=== PATIENT | female | born 1970 | race Caucasian/White ===

== ENCOUNTER → 2019-05-26 | Outpatient (CLI) | payer OTHER, SELFPAY ==
--- OUTSIDE RECORDS SUMMARY | 2019-05-26 16:14 | XMS RPT_ITS | CCD ---
:1970 External Reference #:[id number] Author Organization [facility] Care Team Providers Name Role Phone Romeo JACKSON, P Unavailable WEEMAN, M Unavailable Unavailable WEEMAN, M Unavailable Unavailable WEEMAN, M Unavailable Unavailable BROWN Unavailable Unavailable PROVIDER Unavailable Unavailable PROVIDER Unavailable Unavailable PROVIDER Unavailable Unavailable WEEMAN, M Unavailable Unavailable WEEMAN, M Unavailable Unavailable WEEMAN, M Unavailable Unavailable BROWN Unavailable Unavailable PROVIDER Unavailable Unavailable PROVIDER Unavailable Unavailable PROVIDER Unavailable Unavailable WEEMAN, M Unavailable Unavailable WEEMAN, M Unavailable Unavailable WEEMAN, M Unavailable Unavailable BROWN Unavailable Unavailable PROVIDER Unavailable Unavailable PROVIDER Unavailable Unavailable PROVIDER Unavailable Unavailable PHYSICIAN Primary Care Unavailable SERRI Attending Unavailable [facility] Referring Unavailable FANNING, A Attending Unavailable CHRISTEN QUINONES Referring Unavailable FANNING, A Admitting Unavailable FANNING, A Attending Unavailable FANNING, A Referring Unavailable FANNING, A Admitting Unavailable FANNING, A Attending Unavailable FANNING, A Referring Unavailable FANNING, A Referring Unavailable FANNING, A Referring Unavailable Artie DEJESUS (VAULT MAKER) Attending Unavailable HEMA, A Referring Unavailable HEMA, A Attending Unavailable HEMA, A Referring Unavailable HEMA, A Referring Unavailable HEMA, A Attending Unavailable HEMA, A Referring Unavailable Romeo JACKSON, P Unavailable Allergies Reported Allergen Reaction(s) Severity Date of Onset Location penicillin v Critical, Critical 07-03-2017 - [facility] ([phone]) Penicillins Unknown 10-11-2006 - [facility] Translations: [ [facility] [place] PENICILLINS] Repository Problems Active Problems Category Problem Name Status Date Location Abdominal pain Epigastric pain Active 01-17-2019 - [facility] (0000 0) Other screening for Mammography abnormal Active 07-03-2017 - [facility] Surgical suspected conditions [facility] ([id number]) (not mental disorders or infectious disease) Past or Other Problems Category Problem Name Status Date Location Other screening for Encounter for Completed 03-11-2018 - [facility] suspected conditions screening for lipoid [place] ([id number]) (not mental disorders disorders or infectious disease) Results Result Name Value Range Unit Interpretation Flag Date Location cnpn on 2019-05-13 CNPN Telephone (AGGENS7) Normal 05-13-2019 [facility] BOZENA QUEVEDO ([id number]) 1970 F Medical Date Time Provider Department Center 05/13/19 ROMIE GRUBER AGGENS7 ([id number]) During your visit today, we recorded the following informati on about you: Becca Zaragoza MA 05/13/2019 10:41 AM Signed Bozena called today for pathology results from her EGD. I did not give them to her, I wasn't sure if I'm allowed. She has a follow up appointment scheduled with you on May 28 does she need to keep this appointment? Romie Gruber MD 05/13/2019 10:45 AM Signed Her pathology showed no abnormalities. I would like to have the follow up unless her symptoms are resolved. Allergies As of Date: 05/13/2019 Noted Allergy Reaction PENICILLINS 10/11/2006 16 - Unknown Comments: Patient told she was allergic from childhood Date Reviewed: 05/06/2019 Reviewed by: Seda Piedra) REJI Minor - Fully Assessed Reason for Visit: Results [95] Prescriptions as of 05/13/2019 Sig: MOTRIN ORAL Take 400 mg by mouth as neede* RANITIDINE 150 MG TABLET Take 1 tablet by mouth twice * ASCORBIC ACID (VITAMIN C) 500* Take 500 mg by mouth once ezra * Problem List As Of Date 05/13/2019 Noted Resolved Rosacea [L71.9] INVALID FOR* Sebaceous cyst [L72.3] INVALID FOR* Scar condition and fibrosis of skin [L90.5] INVALID FOR* Other chronic dermatitis due to solar radiation*INVALID FOR* Fibrocystic change of breast [N60.19] INVALID FOR* More... More... Vertigo [R42] INVALID FOR* More... Ex-smoker [Z87.891] INVALID FOR* More... Sliding hiatal hernia [K44.9] INVALID FOR* GERD without esophagitis [K21.9] INVALID FOR* Schatzki's ring [K22.2] INVALID FOR* Encounter for gynecological examination [Z01.41*INVALID FOR* More... Encounter Status:Closed by ROMIE GRUBER MD on 05/13/19 surgical tissue exam on 2019-05-06 Surgical Tissue Test performed at [facility] Normal 05-06-2019 [facility] [address] [place] [id number] ([id number]) NAME: BOZENA QUEVEDO REQUESTING: ROMIE GRUBER M.D. COPY TO: LOKI GARRIDO FINAL DIAGNOSIS: A) STOMACH, ANTRUM, BIOPSY - NO PATHOLOGIC ABNORMALITIES. SE E COMMENT. B) GASTROESOPHAGEAL JUNCTION, BIOPSY - NO PATHOLOGIC ABNORMA LITIES. SEE COMMENT. COMMENT: There are no histologic features in the gastric bio psy to suggest Helicobacter pylori infection. There is no evidence of intestinal metaplasia identified in the gastroesophageal spencer ction biopsy. OPERATIVE PROCEDURE: EGD CLINICAL INFORMATION: Gastroesophageal reflex disease, esophagitis presence not sp ecified [K21.9] GROSS DESCRIPTION: A) Antrum biopsies Received in formalin labeled antrum biopsies are two segment s of noriega soft tissue aggregating to 0.6 x 0.1 x 0.1 cm. The specimen is totally submitted in formalin in one cassette. Levels x 2. B) GE junction biopsies Received in formalin labeled gastroesophageal junction biops ies are multiple segments of noriega-white soft tissue aggregating to 0. 4 x 0.1 x 0.1 cm. The specimen is totally submitted in formalin in one cassette. Levels x 2. ARH:arnie PENA M.D., PATHOLOGIST (Electronic signature on file) Signed out: 05/08/2019 15:17 PRINTED: 05/08/2019 Page 1 of 1 Comment: Performed By: #### SURG #### [place] [id number] pt ed on 2019-05-06 PT ED HNO ID: [id number] Normal 05-06-2019 [facility] Author: Tanesha (Rn) REJI Gilman [place] ([id number]) Service: ? Author Type: Registered Nurse Type: Patient Education Filed: 05/06/2019 9:26 AM Note Text: ONGOING PATIENT EDUCATION TOPIC Reinforced: pain scale Patient Name: Bozena Quevedo Patient [facility]: [facility] Readiness To Learn Motivation To Learn: Interested Instruction Provided To: Patient Learning Response Patient/Family Response: Verbalizes understanding of: PAIN MANAGEMENT-Effective strategies to manage pain in addition t o pain medication Method of Instruction: Individual instruction Follow-Up Plan: Complete - No need for follow-up Electronically signed by: Tanesha Gilman RN operative no on 201 08-01-11 OPERATIVE NO HNO ID: [id number] Normal 05-06-20 [facility] Author: Romie Treadwell [facility] Service: General Surgery ([id number]) Author Type: Physician Type: Operative Report Filed: 05/07/2019 4:38 PM Note Text: [facility] - Operative Report - [facility] BOZENA QUEVEDO : 1970 AGE: 48. SEX: F PATIENT TYPE: A HOSP SVC: [facility] LOCATION: [facility] ATTENDING PHYSICIAN: ROMIE GRUBER CSN NUMBER: [id number] DATE OF SURGERY/PROCEDURE: 05/06/2019 INCISION/PROCEDURE START TIME: 10:40 AM INCISION CLOSE/PROCEDURE END TIME: 10:44 AM PREOPERATIVE DIAGNOSIS: Gastroesophageal reflux disease and dysphagia. POSTOPERATIVE DIAGNOSIS: Gastroesophageal reflux disease and dysphagia. SURGEON: Romie Gruber MD REGIONAL CONSTRUCTION MANAGER: No Additional Staff SURGERY/PROCEDURE: EGD with biopsy. ANESTHESIA: MAC. HISTORY: The patient is a 48-year-old female, who has reflux disease and dysphagia, and presents today for an EGD. Procedure was revi ewed with her in detail including all the risks, benefits, and complic ations inherent to the procedure, which include but are not limited to, bleeding, infection, missing a lesion, and perforation requi ring surgery. She understood and was agreeable to proceed. DESCRIPTION OF PROCEDURE: The patient was brought to the end oscopy suite. Routine monitoring was performed. She was placed in the left lateral decubitus position after adequate MAC anesthesia was obtaine d. The scope was inserted and passed down the esophagus. Z-line was noted to be at approximately 33 centimeters. There was no esophagitis. Scop e was inserted. Retroflex view showed a Hill grade 2. There were n o abnormalities in remainder in the stomach or the second port ion of the duodenum. Scope was withdrawn. Biopsies were obtained of the antrum and of the GE junction. Air was then aspirated from the stomach. Scope was withdrawn. The patient tolerated the procedure well and was transferred to the recovery room in stable condition. Romie Gruber MD P:[id number] /[id number] nursing prog on 201 08-01-11 Protein mass conc HNO ID: [id number] Normal [facility] Author: Seda Piedra) REJI [facility] ([id number]) Service: ? Author Type: Registered Nurse Type: Nursing Progress Note Filed: 05/06/2019 11:46 AM Note Text: Patient nausea subsided and she was able to go home. Protein mass conc HNO ID: [id number] Normal [facility] Author: Seda Piedra) REJI Minor [place] ([id number]) Service: ? Author Type: Registered Nurse Type: Nursing Progress Note Filed: 05/06/2019 11:20 AM Note Text: Bozena Quevedo [id number] Patient awoke gagging and vomiting profusely. Her stomach wa s empty but the urge to vomit was intense. zofran was given IVP. This mercado s appeared to lesson the urge to vomit but it is still there. Will continu e to monitor. history physical on 2019-05-06 HISTORY PHYSICAL HNO ID: [id number] Normal 04-26 [facility] Author: Susan Coleman ([facility] Service: ? ([id number]) Author Type: Nurse Practitioner Type: HANDP Filed: 05/06/2019 10:17 AM Note Text: HISTORY AND PHYSICAL EXAMINATION Bozena Quevedo 1970 SERVICE DATE: 05/06/2019 SERVICE TIME: 9:55 AM PRIMARY CARE PHYSICIAN: Loki Garrido MD SURGEON: Surgeon(s) and Role: * Romie Gruber - Primary ANESTHESIA: Monitored Anesthesia Care DIAGNOSIS: Gastroesophageal reflux disease, esophagitis pres ence not specified [K21.9] GERD (gastroesophageal reflux disease) [K21.9] PROCEDURE: Procedure(s): EGD (N/A) Subjective CHIEF COMPLAINT: GERD HPI: This is a 48 year old female with a past medical histor y significant for GERD and vertigo who presents to the surgery center for the above procedure. She states that she had an upper GI scope done se veral weeks ago. She was told she had a ring at the bottom of the esop hagus and today they will be taking another look at it. Patient denies any abdominal pain, constipation, diarrhea, nausea, vomiting, black/bloody/tarry stools. She has no questions or concerns at this time and family is at the bedside. PROBLEMS WITH ANESTHESIA: no history of adverse anesthetic event FAMILY PROBLEMS WITH ANESTHESIA: no history of adverse anesthetic event METS: Climb a flight of stairs or walk up a hill (5.50 METs) FUNCTIONAL STATUS: Independent PAST MEDICAL HISTORY Diagnosis Date - Fibrocystic change of breast 04/10/2013 - GERD without esophagitis 01/17/2019 - Sliding hiatal hernia 01/17/2019 - SOLAR LENGINES//////SEBACEOUS GLAND DIS NEC 10/12/2006 - TELANGIECTOSIS///CAPILLARY DIS NEC/NOS 10/12/2006 - Vertigo PAST SURGICAL HISTORY Procedure Laterality Date - ESOPH W/O [facility] SPEC BALLOON DIL - LIGATE FALLOPIAN TUBE 1994 - PAST SURGICAL HISTORY OF 02/2012 Sebaceous cyst removed - PAST SURGICAL HISTORY OF 2004 uterine ablation - FELICIANO CUT BX BREAST MASS Left 03/11/2018 FAMILY HISTORY Problem Relation Age of Onset - Diabetes Maternal Grandmother - Heart Maternal Grandmother - Hypertension Maternal Grandmother - Diabetes Maternal Grandfather Social History Tobacco Use - Smoking status: Former Smoker Types: Cigarettes Last attempt to quit: 04/10/2001 Years since quittin.0 - Smokeless tobacco: Never Used Substance Use Topics - Alcohol use: No - Drug use: No Prior to Admission medications as of 05/06/19 0936 Medication Sig Last Dose Taking ibuprofen (MOTRIN ORAL) Take 400 mg by mouth as needed. 2018 Yes ranitidine (ZANTAC) 150 mg tablet Take 1 tablet by mouth twi ce daily. Yes ascorbic acid (VITAMIN C) 500 mg tablet Take 500 mg by mouth once daily. Yes ALLERGIES Allergen Reactions - Penicillins Rash GI upset COMPLETE REVIEW OF SYSTEMS: GENERAL: No weight loss, malaise or fevers RESPIRATORY: Negative for cough, hemoptysis, wheezing, COPD, dyspnea or shortness of breath CARDIOVASCULAR: Negative for chest pain, leg swelling, hyper tension, CHF or palpitations GI: See HPI : No history of dysuria, frequency or incontinence MUSCULOSKELETAL: Negative for joint pain or swelling, back p ain or muscle pain PSYCH: Negative for sleep disturbance, mood disorder and rec ent psychosocial stressors ENDOCRINE: Negative for cold or heat intolerance, polyuria, polydipsia and goiter NEURO: +hx of vertigo HEM/ONC: no history of hematologic or oncologic problems Objective PHYSICAL EXAM: MENTAL STATUS: alert, oriented to person, place and time HEENT: Normocephalic/atraumatic, no lymphadenopathy, thyroid non-tender, without palpable masses/nodules or enlargement LUNGS: Lungs clear to auscultation, Good diaphragmatic excur kvng CARDIAC: Normal S1 and S2; no rubs, murmurs, or gallops ABDOMEN: Abdomen soft, non-tender, BS normal, No masses or o rganomegaly EXTREMITIES: Extremities normal, no deformities, edema, club susy or skin discoloration. Good capillary refill., No ulcers 05/06/19 0940 BP: 104/68 Pulse: 62 Resp: 16 Temp: 36.7 ?C (98.1 ?F) SpO2: 100% Weight: 57.6 kg (127 lb) Height: 149.9 cm (4' 11) Body mass index is 25.65 kg/m?. SIGNATURE: Susan Garcia APRN.WEAVE ROOM SUPERVISOR PATIENT NAME: Bozena Quevedo DATE: May 06, 2019 TIME: 9:55 AM PAGER/CONTACT #: fermin preop on 05-06 FERMIN PREOP HNO ID: [id number] Normal 05-06-2019 [facility]y Author: Jatinder [facility] Service: Anesthesiology ([id number]) Author Type: Physician Type: Anesthesia PreOp Filed: 05/06/2019 9:33 AM Note Text: ANESTHESIOLOGY DAY OF SURGERY NOTE SERVICE DATE: 05/06/2019 SERVICE TIME: 9:32 AM : 1970 Procedure(s) (LRB): EGD (N/A) Surgeon(s): Romie Gruber Estimated body mass index is 24.56 kg/m? as calculated from the following: Height as of 01/29/19: 154.9 cm (5' 1). Weight as of 01/29/19: 59 kg (130 lb). Most recent hematocrit and potassium results: No results found for this basename: HCT,HEMATOCRIT,K,POTASSI UM ANES DOS/PREOP NOTE: Vitals: There were no vitals filed for this visit. ACTIVE PROBLEM LIST Rosacea Sebaceous Cyst Scar condition and fibrosis of skin Other chronic dermatitis due to solar radiation Fibrocystic Change of Breast Vertigo Ex-Smoker Sliding Hiatal Hernia Gerd Without Esophagitis Schatzki's Ring Encounter for Gynecological Examination PAST MEDICAL HISTORY Diagnosis Date - Contact dermatitis and other eczema, due to unspecified ca use 10/12/2006 - Ex-smoker 12/11/2018 Started at age 19, up to 5-6 cigs a day and quit at age 39 - Fibrocystic change of breast 04/10/2013 - GERD without esophagitis 01/17/2019 - NEGATIVE MEDICAL HISTORY - Other acne 10/12/2006 - Other chronic dermatitis due to solar radiation 10/12/2006 - Rosacea 10/12/2006 - Scar condition and fibrosis of skin 10/12/2006 - Sebaceous cyst 10/12/2006 - Sliding hiatal hernia 01/17/2019 - SOLAR LENGINES//////SEBACEOUS GLAND DIS NEC 10/12/2006 - TELANGIECTOSIS///CAPILLARY DIS NEC/NOS 10/12/2006 - Vertigo PAST SURGICAL HISTORY Procedure Laterality Date - [facility] BALLOON DIL - LIGATE FALLOPIAN TUBE 1994 - PAST SURGICAL HISTORY OF 02/2012 Sebaceous cyst removed - PAST SURGICAL HISTORY OF 2004 uterine ablation - FELICIANO CUT BX BREAST MASS Left 03/11/2018 FAMILY HISTORY Problem Relation Age of Onset - Diabetes Maternal Grandmother - Heart Maternal Grandmother - Hypertension Maternal Grandmother - Diabetes Maternal Grandfather Social History: Social History Tobacco Use - Smoking status: Former Smoker Types: Cigarettes Last attempt to quit: 04/10/2001 Years since quittin.0 - Smokeless tobacco: Never Used Substance Use Topics - Alcohol use: No - Drug use: No No current facility-administered medications on file prior t o encounter. Current Outpatient Medications on File Prior to Encounter: ranitidine (ZANTAC) 150 mg tablet Take 1 tablet by mouth twi ce daily. ascorbic acid (VITAMIN C) 500 mg tablet Take 500 mg by mouth once daily. Current Facility-Administered Medications Medication Dose Route Frequency Provider Last Rate Last Dose - lidocaine 10 mg/mL (1 %) 1-2 mg injection (XYLOCAINE) 0.1- 0.2 mL INTRADERMAL PRN Susan Coleman (Senior Manager Quality Assurance) Jose - lactated ringers infusion 5-30 mL/hr INTRAVENOUS CONTINUOU S Susan Coleman (Senior Manager Quality Assurance) Jose Allergies: ALLERGIES Allergen Reactions - Penicillins Rash GI upset DOS EXAM: Adequate NPO status: Yes Anesthetic risks, benefits, alternatives, personnel and cons ent discussed: Yes Patient agrees to proceed: Yes Previous Anesthesia: No history of adverse event. Airway Assessment: MP 2; Neck ROM: Full ROM without neurolog ic symptoms; Airway Evaluation: No significant abnormalities Symptoms of Sleep Apnea: None Dentition: Teeth intact Additional Physical Exam: Lungs: Patient health status unchanged since recent history and physical. See history and physical for exam findings. Cardiac: Patient health status unchanged since recent histor y and physical. See history and physical for exam findings. Additional Pertinent Findings: N/A Blood Products: Not anticipated for this procedure. Anesthetic Plan: General, Standard ASA Monitors Pain Management Plan: Parenteral or Oral ASA Class: 2 Other Medical Problems: None Chronic Beta Nazia medication administered within 24 hours : N/A I have interviewed and examined the patient. I have reviewed the medical record and/or the pre-anesthesia evaluation, pertinent labs, and test results. Significant changes in the patient's condition since the His tory and Physical, not otherwise documented in primary service progre notes: No This contains updated information obtained within 48 hours o f Surgery/Procedure. SIGNATURE: Jatinder Holman MD PATIENT NAME: Bozena bustos DATE: May 06, 2019 TIME: 9:32 AM CSN: [id number] anes post on 2019--11 ANES POST HNO ID: [id number] Normal 05-06-2019 [facility] Author: Jatinder Holman [place] ([id number]) Service: Anesthesiology Author Type: Physician Type: Anesthesia PostOp Filed: 05/06/2019 11:56 AM Note Text: POST ANESTHESIA EVALUATION NOTE SERVICE DATE: 05/06/2019 SERVICE TIME: 11:56 AM : 1970 Vitals: 05/06/19939 Temp: 36.7 ?C (98.1 ?F) [birth year]1940 05/06/19 1050 05/06/19 1115 BP: 104/68 106/72 97/83 05/06/19 0940 05/06/19 1050 05/06/19 1115 Pulse: 62 83 64 05/06/19 0940 05/06/19 1050 05/06/19 1115 Resp: 16 14 16 05/[birth year]/1940 05/06/19 1050 05/06/19 1115 SpO2: 100% 96% 100% Validated Vital Signs: Yes POST ANES STATUS: No apparent anesthetic complications. The patient is appropriately hydrated with stable respiratory and cardiovas cular status. Patient has safe and adequate airway control. The patient mercado s appropriate pain relief and no significant post operative nausea or vomi ting. The patient has achieved baseline mental status. Intra-Operative Events: No Significant Anesthesia Events Further assessment by Anesthesia Service: None Other Remarks: SIGNATURE: Jatinder Holman MD PATIENT NAME: Bozena bustos DATE: May 06, 2019 TIME: 11:56 AM PAGER/CONTACT #: hosp on 2019-05-05 HOSP Patient:Bozena Quevedo Normal [facility] MRN: Medical Ce nter Height:4' 11(1.499 m) ([id number]) Weight:127 lb (57.607 kg) Outpatient Medications as of 05/06/19: ibuprofen (MOTRIN ORAL) ranitidine (ZANTAC) 150 mg tablet ascorbic acid (VITAMIN C) 500 mg tablet Admission/Clinic Administered Medications as of 05/06/19: HYDROcodone-acetaminophen oral liquid 7.5 mg-325 mg/15 mL (H YCET) Problem List: Rosacea [L71.9] Sebaceous cyst [L72.3] Scar condition and fibrosis of skin [L90.5] Other chronic dermatitis due to solar radiation [L57.8] Fibrocystic change of breast [N60.19] Vertigo [R42] Ex-smoker [Z87.891] Sliding hiatal hernia [K44.9] GERD without esophagitis [K21.9] Schatzki's ring [K22.2] Encounter for gynecological examination [Z01.419] Allergies: Penicillins Date Verified: 05/06/19 Lab Values No results within the last 30 days for the following basenam es: K,HCT Progress Notes ([facility]): Loki Garrido MD 04/08/2019 5:10 PM Signed New order for bilat diagnostic mammo placed. Please help set up. Trish Iqbal LPN 04/09/2019 9:05 AM Signed Patient aware orders are updated. Trish Iqbal LPN progress on 2019-01 Protein mass HNO ID: [id number] Normal 01-30-20 19 [facility] Author: Romie [facility] Service: ? ([id number]) Author Type: Physician Type: Progress Notes Filed: 01/29/2019 4:53 PM Note Text: Bozena Quevedo is a 48 year old White female who presen with complaints of chest discomfort. This happened in November she is having discomfort in the lower chest upper abdomen. She did go to [facility] emergency department. EKG and troponins were normal. She was diagnosed with reflux and paced on a PPI. She take it for 2 weeks and saw her [facility] doctor ordered an upper GI. This showed a small sliding karma ia and mild reflux. There is also a Schatzki's ring but there is no obst ruction of flow into the stomach. She is currently taking ranitidine. S he denies any significant relief of symptoms. PAST MEDICAL HISTORY Diagnosis Date - Contact dermatitis and other eczema, due to unspecified ca use 10/12/2006 - Ex-smoker 12/11/2018 Started at age 19, up to 5-6 cigs a day and quit at age 39 - Fibrocystic change of breast 04/10/2013 - GERD without esophagitis 01/17/2019 - NEGATIVE MEDICAL HISTORY - Other acne 10/12/2006 - Other chronic dermatitis due to solar radiation 10/12/2006 - Rosacea 10/12/2006 - Scar condition and fibrosis of skin 10/12/2006 - Sebaceous cyst 10/12/2006 - Sliding hiatal hernia 01/17/2019 - SOLAR LENGINES//////SEBACEOUS GLAND DIS NEC 10/12/2006 - TELANGIECTOSIS///CAPILLARY DIS NEC/NOS 10/12/2006 - Vertigo PAST SURGICAL HISTORY Procedure Laterality Date - ESOPH W/O [facility] SPEC BALLOON DIL - LIGATE FALLOPIAN TUBE 1994 - PAST SURGICAL HISTORY OF 02/2012 Sebaceous cyst removed - PAST SURGICAL HISTORY OF 2004 uterine ablation - FELICIANO CUT BX BREAST MASS Left 03/11/2018 Social History Tobacco Use - Smoking status: Former Smoker Types: Cigarettes Last attempt to quit: 04/10/2001 Years since quittin.8 - Smokeless tobacco: Never Used Substance Use Topics - Alcohol use: No - Drug use: No FAMILY HISTORY Problem Relation Age of Onset - Diabetes Maternal Grandmother - Heart Maternal Grandmother - Hypertension Maternal Grandmother - Diabetes Maternal Grandfather ALLERGIES Allergen Reactions - Penicillins Rash GI upset Current Outpatient Medications: ranitidine (ZANTAC) 150 mg tablet Take 1 tablet by mouth twi ce daily. ascorbic acid (VITAMIN C) 500 mg tablet Take 500 mg by mouth once daily. No current facility-administered medications for this visit. REVIEW OF SYSTEMS PAIN ASSESSMENT: Negative for pain, history of chronic pain, or current treatment for a chronic pain condition. GENERAL: No weight loss, malaise or fevers NECK: Negative for lumps, goiter, pain and significant neck swelling RESPIRATORY: Negative for cough, hemoptysis, wheezing, COPD, dyspnea or shortness of breath CARDIOVASCULAR: Negative for chest pain, leg swelling, hyper tension, CHF or palpitations GI: See HPI : No history of dysuria, frequency or incontinence MUSCULOSKELETAL: Negative for joint pain or swelling, back p ain or muscle pain HEMATOLOGY/LYMPHOLOGY: Negative for prolonged bleeding, brui sing easily or swollen nodes ENDOCRINE: Negative for cold or heat intolerance, polyuria, polydipsia and goiter PHYSICAL EXAM: BP 112/68 Pulse 62 Resp 20 Ht 5' 1 (1.55m) Wt 130 l b (59.0kg) SpO2 99% BMI 24.58 kg/(m2). General Appearance: Well appearing, alert, in no acute distr ess, well-hydrated, well nourished.. Eyes: Normal sclera Skin: Skin texture and turgor normal, no suspicious rashes o r lesions, Negative for jaundice or pallor. Neck: Supple, trachea midline Lungs: lungs clear to auscultation. No wheezing, rhonchi, ra les. Heart: RRR without murmur, gallop, or rubs. No ectopy. Abdomen: Normal abdominal exam, Abdomen soft, non-tender. Jacob wel sounds normal. No masses, organomegaly, Negative CVA tenderness. Musculoskeletal: Negative. Lymph Nodes: No cervical lymphadenopathy and No supraclavicu lar lymphadenopathy. Assessment: Gastroesophageal reflux disease, esophagitis presence not sp ecified (primary encounter diagnosis) Plan: Given her symptoms especially the chest pressure I recommend ed proceeding with a EGD and placement of cárdenas pH probe and manometry. Th e risks, benefits and complications were reviewed including but not l imited to bleeding, infection, missing a lesion, effects of anesthesia and perforation possibly requiring an emergency surgery. She und erstood and was agreeable to proceed.Greater than 50% of the direct jose ent contact time was spent in counseling or coordination of care. Romie Gruber M.D., F.A.C.S. cnov on 2019-01-29 CNOV Office Visit ([facility]) Normal 01-30-20 19 [facility] BOZENA QUEVEDO ([id number]) 1970 F Medical Date Time Provider Department Center 01/29/19 2:45 PM [id number] During your visit today, we recorded the following informati on about you: Pulse Respiration Blood pressure Weight 62/minute 20/minute 112/68 59 kg Height 1.549 m Romie Gruber MD 01/29/2019 4:53 PM Signed Bozena Quevedo is a 48 year old Whi te female who presents with complaints of chest discomfort. This happened in November sh e is having discomfort in the lower chest upper abdomen. She did go to the emergency depar tment. EKG and troponins were normal. She was diagnosed with reflux a nd paced on a PPI. She take it for 2 weeks and saw her primary care doc tor ordered an upper GI. This showed a small sliding hernia and mild r eflux. There is also a Schatzki's ring but there is no obstruction of flow into the sto mach. She is currently taking ranitidine. She denies any significant relief of symptoms. PAST MEDICAL HISTORY Diagnosis Date - Contact dermatitis and other eczema, due to unspecified ca use 10/12/2006 - Ex-smoker 12/11/2018 Started at age 19, up to 5-6 cigs a day and quit at age 39 - Fibrocystic change of breast 04/10/2013 - GERD without esophagitis 01/17/2019 - NEGATIVE MEDICAL HISTORY - Other acne 10/12/2006 - Other chronic dermatitis due to solar radiation 10/12/2006 - Rosacea 10/12/2006 - Scar condition and fibrosis of skin 10/12/2006 - Sebaceous cyst 10/12/2006 - Sliding hiatal hernia 01/17/2019 - SOLAR LENGINES//////SEBACEOUS GLAND DIS NEC 10/12/2006 - TELANGIECTOSIS///CAPILLARY DIS NEC/NOS 10/12/2006 - Vertigo PAST SURGICAL HISTORY Procedure Laterality Date - [facility] - LIGATE FALLOPIAN TUBE 1994 - PAST SURGICAL HISTORY OF 02/2012 Sebaceous cyst removed - PAST SURGICAL HISTORY OF 2004 uterine ablation - FELICIANO CUT BX BREAST MASS Left 03/11/2018 Social History Tobacco Use - Smoking status: Former Smoker Types: Cigarettes Last attempt to quit: 04/10/2001 Years since quittin.8 - Smokeless tobacco: Never Used Substance Use Topics - Alcohol use: No - Drug use: No FAMILY HISTORY Problem Relation Age of Onset - Diabetes Maternal Grandmother - Heart Maternal Grandmother - Hypertension Maternal Grandmother - Diabetes Maternal Grandfather ALLERGIES Allergen Reactions - Penicillins Rash GI upset Current Outpatient Medications: ranitidine (ZANTAC) 150 mg tablet Take 1 tablet by mouth twi ce daily. ascorbic acid (VITAMIN C) 500 mg tablet Take 500 mg by mouth once daily. No current facility-administered medications for this visit. REVIEW OF SYSTEMS PAIN ASSESSMENT: Negative for pain, history of chronic pain, or current treatment for a chronic pain condition. GENERAL: No weight loss, malaise or fevers NECK: Negative for lumps, goiter, pain and significant neck swelling RESPIRATORY: Negative for cough, hemoptysis, wheezing, COPD, dyspnea or shortness of breath CARDIOVASCULAR: Negative for chest pain, leg swelling, hyp ertension, CHF or palpitations GI: See HPI : No history of dysuria, frequency or incontinence MUSCULOSKELETAL: Negative for joint pain or swelling, back pain or muscle pain HEMATOLOGY/LYMPHOLOGY: Negative for prolonged bleeding, brui sing easily or swollen nodes ENDOCRINE: Negative for cold or heat intolerance, polyuria, polydipsia and goiter PHYSICAL EXAM: BP 112/68 Pulse 62 Resp 20 Ht 5' 1 (1.55m ) Wt 130 lb (59.0kg) SpO2 99% BMI 24.58 kg/(m2). General Appearance: Well tad earing, alert, in no acute distress, well-hydrated, well nourished.. Eyes: Normal sclera Skin: Skin texture and turgo r normal, no suspicious rashes or lesions, Negative for jaundice or pallor. Neck: Supple, trachea midline Lungs: lungs clear to auscultation. No wheezing, rhonchi, ra les. Heart: RRR without murmur, gallop, or rubs. No ectopy. Abdomen: Normal abdominal exam, Abdomen soft, non-tender. Bowel sounds normal. No masses, organomegaly, Negative CVA tenderness. Musculoskeletal: Negative. Lymph Nodes: No cervical lym phadenopathy and No supraclavicular lymphadenopathy. Assessment: Gastroesophageal reflux disease, esophagitis presence not specified (primary encounter diagnosis) Plan: Given her symptoms especially the chest pressure I recommended proceeding with a EGD and placement of cárdenas pH probe and manometry. T he risks, benefits and complications were reviewed including but not li mited to bleeding, infection, missing a lesion, effects of anesthesia and perf oration possibly requiring an emergency surgery. She under stood and was agreeable to proceed.Greater than 50% of the direct patient contact time was spent in counseling or coordination of care. Romie Gruber M.D., F.A.C.S. Adelina Espinoza RN 01/29/2019 3:10 PM Signed Discussed and reviewed manometry with pt; all questions answ ered. Discussed and reviewed EGD with biopsy with pt; all question s answered. Discussed and reviewed Cárdenas with pt; all questions answered . Adelina Espinoza RN Referring Provider: LOKI GARRIDO [[id number]] Allergies As of Date: 01/29/2019 Noted Allergy Reaction PENICILLINS 10/11/2006 2 - Rash Comments: GI upset Date Reviewed: 01/29/2019 Reviewed by: Romie Gruber - Fully Assessed Reason for Visit: New Patient [172] Cmt: Hiatal Hernia Primary Visit Diagnosis:Gastroesophageal reflux disease, esophagitis presence not specified [K21.9] Order(s):MANOMETRY ESOPHAGEAL FUNCTION W/IMPEDANCE [[id number] ] Order #: [id number] Prescriptions as of 01/29/2019 Sig: RANITIDINE 150 MG TABLET Take 1 tablet by mouth twice * ASCORBIC ACID (VITAMIN C) 500* Take 500 mg by mouth once ezra * Problem List As Of Date 01/29/2019 Noted Resolved Rosacea [L71.9] INVALID FOR* Sebaceous cyst [L72.3] INVALID FOR* Scar condition and fibrosis of skin [L90.5] INVALID FOR* Other chronic dermatitis due to solar radiation*INVALID FOR* Fibrocystic change of breast [N60.19] INVALID FOR* More... More... Vertigo [R42] INVALID FOR* More... Ex-smoker [Z87.891] INVALID FOR* More... Sliding hiatal hernia [K44.9] INVALID FOR* GERD without esophagitis [K21.9] INVALID FOR* Schatzki's ring [K22.2] INVALID FOR* Encounter for gynecological examination [Z01.41*INVALID FOR* More... Visit Notes: >> Adelina Espinoza RN SunJan 29, 2019 3:07 PM Status: Svetlana leger Discussed and reviewed manometry with pt; all questions answ ered. Discussed and reviewed EGD with biopsy with pt; all question s answered. Discussed and reviewed Cárdenas with pt; all questions answered . Adelina Espinoza RN Disposition: Return for After EGD, After testing. Follow-up and Disposition History Recorded Questionnaire: AG GERD HEALTH RELATED QUALITY OF LIFE Surgery/Baclofen dose -> On PPI'S 1. How bad is the heartburn? -> 0 No Symptoms 2. Heartburn when lying down? -> 0 No Symptoms 3. Heartburn when standing up? -> 0 No Symptoms 4. Heartburn after meals? -> 0 No Symptoms 5. Does heartburn change your diet? -> 0 No Symptoms 6. Does heartburn wake you from sleep? -> 0 No Symptoms 7. Do you have difficulty swallowing -> 0 No Symptoms 8. Do you have pain with swallowing? -> 0 No Symptoms 9. If you take medication, does this affect your daily life? -> 0 No Symptoms 10. How bad is the regurgitation? -> 0 No Symptoms 11. Regurgitation when lying down? -> 0 No Symptoms 12. Regurgitation when standing up? -> 0 No Symptoms 13. Regurgitation after meals? -> 0 No Symptoms 14. Does regurgitation change your diet? -> 0 No Symptoms 15. Does regurgitation wake you from sleep? -> 0 No Symptoms TOTAL - HEARTBURN 1-9 -> 0 TOTAL - REGURG 10-15 -> 0 Total -> 0 16. How satisfied are you with your present condition -> Neena tral Other symptoms - check all that apply -> Belching/burping Tests done: Date/provider/location (in c omments) check all that apply -> Upper GI Cmt: 01/17/19 How long have you had heartburn symptoms -> none What is your most troublesome symptom? -> pressure in my susan rnum What medications have you been treated with for heartburn/ho w long? -> ranitidine 150 mg since Nov 2018 Letter Text Encounter Status:Closed by ROMIE GRUBER MD on 01/29/19 progress on 2018-12 Protein mass HNO ID: [id number] Normal 01-22-20 [facility] Author: Loki Garrido Fluker Service: (none) ([phone]) Author Type: Physician Type: Progress Notes Filed: 01/22/2019 8:30 PM Note Text: Chief Complaint Patient presents with: Recheck: epigastric pain HPI Boznea Quevedo is a 48 year old female who presents her e today for Above Complaints.. Patient still getting the pressure sensation up into the hair st. No burning up into the throat. Has not had any problems with th e Zantac. Her upper GI showed a sliding hiatal hernia with reflux and small Schatzki ring. Past medical history, appointments, medications, allergies r kelsey. Previous Medical History PAST MEDICAL HISTORY Diagnosis Date - Contact dermatitis and other eczema, due to unspecified ca use 10/12/2006 - Ex-smoker 12/11/2018 Started at age 19, up to 5-6 cigs a day and quit at age 39 - Fibrocystic change of breast 04/10/2013 - GERD without esophagitis 01/17/2019 - NEGATIVE MEDICAL HISTORY - Other acne 10/12/2006 - Other chronic dermatitis due to solar radiation 10/12/2006 - Rosacea 10/12/2006 - Scar condition and fibrosis of skin 10/12/2006 - Sebaceous cyst 10/12/2006 - Sliding hiatal hernia 01/17/2019 - SOLAR LENGINES//////SEBACEOUS GLAND DIS NEC 10/12/2006 - TELANGIECTOSIS///CAPILLARY DIS NEC/NOS 10/12/2006 - Vertigo Previous Surgical History PAST SURGICAL HISTORY Procedure Laterality Date - ESOPH W/O [facility] SPEC BALLOON DIL - LIGATE FALLOPIAN TUBE 1994 - PAST SURGICAL HISTORY OF 02/2012 Sebaceous cyst removed - PAST SURGICAL HISTORY OF 2004 uterine ablation - FELICIANO CUT BX BREAST MASS Left 03/11/2018 Family History FAMILY HISTORY Problem Relation Age of Onset - Diabetes Maternal Grandmother - Heart Maternal Grandmother - Hypertension Maternal Grandmother - Diabetes Maternal Grandfather Patient Allergies ALLERGIES Allergen Reactions - Penicillins Rash GI upset Current Medications Current Outpatient Prescriptions on File Prior to Visit: ranitidine (ZANTAC) 150 mg tablet Take 1 tablet by mouth twi ce daily. ascorbic acid (VITAMIN C) 500 mg tablet Take 500 mg by mouth once daily. No current facility-administered medications on file prior t o visit. Social History Social History Marital status: Spouse name: Years of education: Number of children: Social History Main Topics Smoking status: Former Smoker Packs/day: 0.00 Years: 0.00 Types: Cigarettes Quit date: 04/10/2001 Smokeless tobacco: Never Used Alcohol use: No Drug use: No Sexual activity: Yes Partners with: Male Review of Symptoms REVIEW OF SYSTEMS See HPI EXAM: BP 110/62 Pulse 60 Resp 12 Wt 57.6 kg (127 lb) BMI 2 5.95 kg/m? General Appearance: Well appearing, alert, in no acute distr ess, well-hydrated, well nourished.. Abdomen: Normal abdominal exam, Abdomen soft, mild epigastri c tenderness.. Bowel sounds normal. No masses, organomegaly. Health Maintenance List DTAP,TDAP,TD(1 - Tdap) due on 1989 PAP TESTING due on 1991 HPV TESTING due on 1991 MAMMOGRAM due on 03/27/2014 DIABETES SCREEN due on 08/26/2021 LIPID SCREEN due on 08/26/2023 INFLUENZA Completed Data reviewed A/P ASSESSMENT/PLAN: 1. GERD without esophagitis - ICD9: 530.81, ICD10: K21.9 (pr imary diagnosis) - Continue treatment with Zantac 150 mg BID - CONSULT TO GENERAL SURGERY: Dr gruber 2. Sliding hiatal hernia - ICD9: 553.3, ICD10: K44.9 - CONSULT TO GENERAL SURGERY 3. Schatzki's ring - ICD9: 750.3, ICD10: K22.2 - CONSULT TO GENERAL SURGERY Signed Prescriptions Disp Refills ranitidine (ZANTAC) 150 mg tablet 180 tablet 1 Sig: Take 1 tablet by mouth twice daily. WILIAN: No F/u on or after 08/26/2019 for REINALDO Garrido MD cnov on 2019-01-22 CNOV Office Visit ([facility]) Normal 01-22-[address] [facility] DANOKIMBERLYN LANGEELLA ([id number]) 1970 [facility] Date Time Provider Department ([id number]) 01/22/19 4:00 PM LOKI GARRIDOPWS During your visit today, we recorded the following informati on about you: Pulse Respiration Blood pressure Weight 60/minute 12/minute 110/62 57.6 kg Loki Garrido MD 01/22/2019 8:30 PM Signed Chief Complaint Patient presents with: Recheck: epigastric pain HPI Bozena Quevedo is a 48 year old female who presents here today for Above Complaints.. Patient still getting the pressure sensation up into the chest. No burning up into the throat. Has not had any problems with the Zantac. H er upper GI showed a sliding hiatal hernia with reflux and small Schatzk i ring. Past medical history, appointments, medications, allergies r kelsey. Previous Medical History PAST MEDICAL HISTORY Diagnosis Date - Contact dermatitis and other eczema, due to unspecified ca use 10/12/2006 - Ex-smoker 12/11/2018 Started at age 19, up to 5-6 cigs a day and quit at age 39 - Fibrocystic change of breast 04/10/2013 - GERD without esophagitis 01/17/2019 - NEGATIVE MEDICAL HISTORY - Other acne 10/12/2006 - Other chronic dermatitis due to solar radiation 10/12/2006 - Rosacea 10/12/2006 - Scar condition and fibrosis of skin 10/12/2006 - Sebaceous cyst 10/12/2006 - Sliding hiatal hernia 01/17/2019 - SOLAR LENGINES//////SEBACEOUS GLAND DIS NEC 10/12/2006 - TELANGIECTOSIS///CAPILLARY DIS NEC/NOS 10/12/2006 - Vertigo Previous Surgical History PAST SURGICAL HISTORY Procedure Laterality Date - [facility] - LIGATE FALLOPIAN TUBE 1994 - PAST SURGICAL HISTORY OF 02/2012 Sebaceous cyst removed - PAST SURGICAL HISTORY OF 2004 uterine ablation - FELICIANO CUT BX BREAST MASS Left 03/11/2018 Family History FAMILY HISTORY Problem Relation Age of Onset - Diabetes Maternal Grandmother - Heart Maternal Grandmother - Hypertension Maternal Grandmother - Diabetes Maternal Grandfather Patient Allergies ALLERGIES Allergen Reactions - Penicillins Rash GI upset Current Medications Current Outpatient Prescriptions on File Prior to Visit: ranitidine (ZANTAC) 150 mg tablet Take 1 tablet by mouth twi ce daily. ascorbic acid (VITAMIN C) 500 mg tablet Take 500 mg by mouth once daily. No current facility-administered medications on file prior t o visit. Social History Social History Marital status: Spouse name: Years of education: Number of children: Social History Main Topics Smoking status: Former Smoker Packs/day: 0.00 Years: 0.00 Types: Cigarettes Quit date: 04/10/2001 Smokeless tobacco: Never Used Alcohol use: No Drug use: No Sexual activity: Yes Partners with: Male Review of Symptoms REVIEW OF SYSTEMS See HPI EXAM: BP 110/62 Pulse 60 Resp 12 Wt 57.6 kg (127 lb) BMI 2 5.95 kg/m? General Appearance: Well tad earing, alert, in no acute distress, well-hydrated, well nourished.. Abdomen: Normal abdominal exam, Abdomen soft, mild epigastri c tenderness.. Bowel sounds normal. No masses, organomegaly. Health Maintenance List DTAP,TDAP,TD(1 - Tdap) due on 1989 PAP TESTING due on 1991 HPV TESTING due on 1991 MAMMOGRAM due on 03/27/2014 DIABETES SCREEN due on 08/26/2021 LIPID SCREEN due on 08/26/2023 INFLUENZA Completed Data reviewed A/P ASSESSMENT/PLAN: 1. GERD without esophagitis - ICD9: 530.81, ICD10: K21 .9 (primary diagnosis) - Continue treatment with Zantac 150 mg BID - CONSULT TO GENERAL SURGERY: Dr gruber 2. Sliding hiatal hernia - ICD9: 553.3, ICD10: K44.9 - CONSULT TO GENERAL SURGERY 3. Schatzki's ring - ICD9: 750.3, ICD10: K22.2 - CONSULT TO GENERAL SURGERY Signed Prescriptions Disp Refills ranitidine (ZANTAC) 150 mg tablet 180 tablet 1 Sig: Take 1 tablet by mouth twice daily. WILIAN: No F/u on or after 08/26/2019 for REINALDO Loki Garrido MD Referring Provider: LOKI GARRIDO [[id number]] Allergies As of Date: 01/22/2019 Noted Allergy Reaction PENICILLINS 10/11/2006 2 - Rash Comments: GI upset Date Reviewed: 01/22/2019 Reviewed by: Loki Garrido - Fully Assessed Reason for Visit: Recheck [92] Cmt: epigastric pain Primary Visit Diagnosis:GERD without esophagitis [K21.9] Other Visit Diagnoses:Sliding hiatal hernia [K44.9] Schatzki's ring [K22.2] Encounter for gynecological examination [Z01.419] Order(s):ranitidine (ZANTAC) 150 mg tabletTake 1 tablet by m outh twice daily.Disp: 180 tabletRfl: 1 CONSULT TO GENERAL SURGERY [9011] Order #: [id number]: 1 Prescriptions as of 01/22/2019 Sig: RANITIDINE 150 MG TABLET Take 1 tablet by mouth twice * ASCORBIC ACID (VITAMIN C) 500* Take 500 mg by mouth once ezra * Problem List As Of Date 01/22/2019 Noted Resolved Rosacea [L71.9] INVALID FOR* Sebaceous cyst [L72.3] INVALID FOR* Scar condition and fibrosis of skin [L90.5] INVALID FOR* Other chronic dermatitis due to solar radiation*INVALID FOR* Fibrocystic change of breast [N60.19] INVALID FOR* More... More... Vertigo [R42] INVALID FOR* More... Ex-smoker [Z87.891] INVALID FOR* More... Sliding hiatal hernia [K44.9] INVALID FOR* GERD without esophagitis [K21.9] INVALID FOR* Schatzki's ring [K22.2] INVALID FOR* Encounter for gynecological examination [Z01.41*INVALID FOR* More... Prescriptions ordered this encounter Disp Refills Start End RANITIDINE 150 MG TABLET 180 * 1 01/22/2019 Route: ORAL Sig: Take 1 tablet by mouth twice daily. Medications Discontinued During This Encounter ranitidine (ZANTAC) 150 mg tablet 60 t* 5 12/11/2018 9 Route: ORAL Sig: Take 1 tablet by mouth twice daily. Disc: Reason for discontinue is not on file. Follow-up and Disposition History Recorded Encounter Status:Closed by LOKI GARRIDO on 01/22/19 xr upper gi single contrast on 2019-01-17 XR UPPER GI * * *Final Report* * * Normal 01-17 [facility] SINGLE CONTRAST DATE OF EXAM: Jan 17 2019 9:27AM Fluker ([id number]) BCX 5380 - XR UPPER GI SINGLE CONTRAST / 60 PROCEDURE REASON: Epigastric pain * * * * Physician Interpretation * * * * History: Epigastric pain FINDINGS: An esophagram has been performed. The esophagus is normal in contour and caliber. Barium flows freely into the stomach. There is a sliding hiatal hernia with Schatzki ring demonstr ated and small amount of reflux into the distal esophagus. No further abnormality is seen. IMPRESSION: As above Geospatial Scientist: ISAAK Transcribe Date/Time: Jan 17 2019 9:46A Dictated by : HERON HARDEN MD This examination was interpreted and the report reviewed and electronically signed by: HERON HARDEN MD on Jan 17 2019 9:46AM EST [id number] progress on 2018-12 Protein mass conc HNO ID: [id number] Normal [facility] Author: Lester Castro ([id number]) Service: (none) Author Type: Implementation Advisor Type: Progress Notes Filed: 01/17/2019 9:23 AM Note Text: Radiology Service Progress Note PATIENT NAME: Bozena Quevedo DATE OF SERVICE: January 17, 2019 TIME: 9:23 AM PATIENT IDENTITY VERIFICATION COMPLETED USING TWO (2) METHOD S: Patient confirmed name verbally and Date of . PATIENT GENDER DATA: Female. status: : No status: NO. PATIENT RELEVANT IMPLANT DATA REVIEWED: Not Applicable RADIOLOGY DEPARTMENT: General X-ray: Exam(s) Completed: GI/G U Procedure(s): Upper GI with barium contrast PERIPHERAL IV DATA: Not applicable SIGNED BY: Lester Engel January 17, 2019 9:23 AM [facility] [employer] lt on 2019-01-17 [facility] US BREAST * * *Final Report* * * Normal [facility] LT DATE OF EXAM: Jan 17 2019 8:27AM Fluker ([id number]) BCW 0593 - [employer] LT / PROCEDURE REASON: Fibrocystic changes of left breast * * * * Physician Interpretation * * * * #[id number] - [facility] DIAGNOSTIC LT #[id number] - [facility] [employer] BREAST [employer] LT UNILATERAL LEFT DIGITAL DIAGNOSTIC MAMMOGRAM WITH CAD: 2018 HISTORY: Fibrocystic Changes Of Left Breast Fibrocystic Tatum ges Of Left Breast. RESULT: TECHNIQUE: The study was acquired using full field digital t echnology and interpreted from soft copy. Current study was also evaluated with a Computer Aided Detec tion (CAD). Comparison is made to exams dated: 07/12/2018 mammogram - [facility] and 06/19/2018 mammogram. The tissue of left breast is heterogeneously dense. This may lower the sensitivity of mammography. There is a stable biopsy clip in the left breast in the ante rior depth in the upper outer quadrant that correlates with biopsy site. No significant masses, calcifications, or other findings are seen in the breast. IMPRESSION: BENIGN FINDING There is no mammographic evidence of malignancy. ULTRASOUND OF LEFT BREAST: 01/17/2019 RESULT: Comparison is made to exams dated: 07/12/2018 mammogram - [facility] and 06/19/2018 mammogram. Real-time ultrasound of the left breast was performed. There is a stable 0.5 cm x 0.4 cm x 0.6 cm oval mass in the left breast at 2 o'clock posterior depth. This oval mass is isoechoic. T his correlates with ultrasound findings. Color flow imaging demo nstrates that there is no vascularity present. There also is 0.9 cm x 0.5 cm x 0.8 cm oval mass in the left breast at 11 o'clock middle depth. This oval mass is hypoechoic with post erior acoustic enhancement. This abnormality is not significantly changed and correlates with ultrasound findings. Additionally, there is 0.7 cm x 0.5 cm x 0.6 cm oval cyst in the left breast at 11 o'clock posterior depth. This oval cyst is anec hoic with internal echoes. This correlates with ultrasound findings. In addition, there is a stable benign 0.9 cm x 0.6 cm x 0.7 cm oval cyst in the left breast at 2 o'clock middle depth. This oval cyst is anechoic and septated with a well-defined boundary and posterior acou stic enhancement. This correlates with ultrasound findings. IMPRESSION: PROBABLY BENIGN - SHORT TERM INTERVAL FOLLOW-UP RECOMMENDED The stable 0.5 cm x 0.4 cm x 0.6 cm oval mass in the left br east at 2 o'clock posterior depth has a differential diagnosis of a fa t lobule or a fibroadenoma and is probably benign. The 0.9 cm x 0.5 cm x 0.8 cm oval mass in the left breast at 11 o'clock middle depth is consistent with a complicated cyst or a fibr oadenoma and is probably benign. The 0.7 cm x 0.5 cm x 0.6 cm oval cyst in the left breast at 11 o'clock posterior depth is consistent with a complicated cyst and is probably benign. The stable 0.9 cm x 0.6 cm x 0.7 cm oval cyst in the left br east at 2 o'clock middle depth is consistent with a complicated cyst a nd is benign. A follow-up mammogram and an ultrasound in 6 months is recom mended to demonstrate stability. Daria Marr M.D., mc/fred:01/17/2019 08:32:10 Multiple national specialty organizations have released darrel st cancer screening guidelines for women at average risk for developin g breast cancer - guidelines that are based on both evidence and opin ion, yet differ on when to start and how often to screen for breast c ancer. With representation from Breast Imaging, Internal Medicine, Women 's Health, Family Medicine, and Medical/Surgical Oncology, the [facility] has carefully reviewed the data and reached the following consen carina: 1) All women should engage in shared decision-making with eir providers to decide when to start and how often to screen; 2) All women should have the opportunity to start screening mammography at age 40; 3) For women ages 45-55, we recommend annual screening mammo grams; 4) For women ages 55 and over, we support both the transitio n from an annual to a biennial interval if this aligns more with patie nt's values and preferences, or continuation with annual screening; 5) All women should discuss with their providers when to sto p screening mammograms. Cosmetic Counselor(s): RT Jones(R)(M), [facility] letter sent: # Mo FU OVERALL STUDY BIRADS: 3 Probably benign finding - short term interval follow-up recommended Geospatial Scientist: Fred Transcribe Date/Time: Jan 17 2019 7:54A Dictated by : DARIA BAL MD This examination was interpreted and the report reviewed and electronically signed by: DARIA BAL MD on Jan 17 2019 8:32AM EST [id number] [facility] diagnostic lt o n 2019-01-17 [facility] * * *Final Report* * * Normal 01-17-2019 [facility] DATE OF EXAM: Jan 17 2019 8:26AM Fluker BCW 0621 - [facility] / ([id number]) PROCEDURE REASON: Fibrocystic changes of left breast * * * * Physician Interpretation * * * * #[id number] - [facility] #[id number] - [facility] US BREAST LTD LT UNILATERAL LEFT DIGITAL DIAGNOSTIC MAMMOGRAM WITH CAD: 2018 HISTORY: Fibrocystic Changes Of Left Breast Fibrocystic Tatum ges Of Left Breast. RESULT: TECHNIQUE: The study was acquired using full field digital t echnology and interpreted from soft copy. Current study was also evaluated with a Computer Aided Detec tion (CAD). Comparison is made to exams dated: 07/12/2018 mammogram - [facility] and 06/19/2018 mammogram. The tissue of left breast is heterogeneously dense. This may lower the sensitivity of mammography. There is a stable biopsy clip in the left breast in the ante rior depth in the upper outer quadrant that correlates with biopsy site. No significant masses, calcifications, or other findings are seen in the breast. IMPRESSION: BENIGN FINDING There is no mammographic evidence of malignancy. ULTRASOUND OF LEFT BREAST: 01/17/2019 RESULT: Comparison is made to exams dated: 07/12/2018 mammogram - [facility] and 06/19/2018 mammogram. Real-time ultrasound of the left breast was performed. There is a stable 0.5 cm x 0.4 cm x 0.6 cm oval mass in the left breast at 2 o'clock posterior depth. This oval mass is isoechoic. T his correlates with ultrasound findings. Color flow imaging demo nstrates that there is no vascularity present. There also is 0.9 cm x 0.5 cm x 0.8 cm oval mass in the left breast at 11 o'clock middle depth. This oval mass is hypoechoic with post erior acoustic enhancement. This abnormality is not significantly changed and correlates with ultrasound findings. Additionally, there is 0.7 cm x 0.5 cm x 0.6 cm oval cyst in the left breast at 11 o'clock posterior depth. This oval cyst is anec hoic with internal echoes. This correlates with ultrasound findings. In addition, there is a stable benign 0.9 cm x 0.6 cm x 0.7 cm oval cyst in the left breast at 2 o'clock middle depth. This oval cyst is anechoic and septated with a well-defined boundary and posterior acou stic enhancement. This correlates with ultrasound findings. IMPRESSION: PROBABLY BENIGN - SHORT TERM INTERVAL FOLLOW-UP RECOMMENDED The stable 0.5 cm x 0.4 cm x 0.6 cm oval mass in the left br east at 2 o'clock posterior depth has a differential diagnosis of a fa t lobule or a fibroadenoma and is probably benign. The 0.9 cm x 0.5 cm x 0.8 cm oval mass in the left breast at 11 o'clock middle depth is consistent with a complicated cyst or a fibr oadenoma and is probably benign. The 0.7 cm x 0.5 cm x 0.6 cm oval cyst in the left breast at 11 o'clock posterior depth is consistent with a complicated cyst and is probably benign. The stable 0.9 cm x 0.6 cm x 0.7 cm oval cyst in the left br east at 2 o'clock middle depth is consistent with a complicated cyst a nd is benign. A follow-up mammogram and an ultrasound in 6 months is recom mended to demonstrate stability. Daria Marr M.D., mc/fred:01/17/2019 08:32:10 Multiple national specialty organizations have released darrel st cancer screening guidelines for women at average risk for developin g breast cancer - guidelines that are based on both evidence and opin ion, yet differ on when to start and how often to screen for breast c ancer. With representation from Breast Imaging, Internal Medicine, Women 's Health, Family Medicine, and Medical/Surgical Oncology, the [facility] has carefully reviewed the data and reached the following consen carina: 1) All women should engage in shared decision-making with eir providers to decide when to start and how often to screen; 2) All women should have the opportunity to start screening mammography at age 40; 3) For women ages 45-55, we recommend annual screening mammo grams; 4) For women ages 55 and over, we support both the transitio n from an annual to a biennial interval if this aligns more with patie nt's values and preferences, or continuation with annual screening; 5) All women should discuss with their providers when to sto p screening mammograms. Cosmetic Counselor(s): RT Jones(R)(M), [facility] letter sent: # Mo FU OVERALL STUDY BIRADS: 3 Probably benign finding - short term interval follow-up recommended Geospatial Scientist: Fred Transcribe Date/Time: Jan 17 2019 7:54A Dictated by : DARIA BAL MD This examination was interpreted and the report reviewed and electronically signed by: DARIA BAL MD on Jan 17 2019 8:32AM EST [id number] cnco on 2019-01-17 [facility] HNO ID: [id number] Normal 01-17-2019 [facility] Author: Mammography Coordinator Fluker ([id number]) Service: (none) Author Type: Physician Type: Letter Filed: 01/20/2019 11:32 PM Note Text: January 17, 2019 PID: [id number] Bozena Quevedo [address] [place] [address] [place] [address] Dear Ms. Quevedo, Your recent breast imaging examination performed on 9 showed an area that we believe is probably benign (not cancer). A six month follow-up is recommended to ensure your breast health. Piedad e call or EXT: [phone] to schedule an appoint ment for these tests if you have not already done so. You must have a referral/prescription from your physician wh en calling to schedule your appointment. You must also bring the prescript ion with you on the day of your exam to avoid delays. Your mammogram demonstrates that you have dense breast tissu e, which could hide abnormalities. Dense breast tissue, in and of itself, i s a relatively common condition. Therefore, this information is not provided to cause undue concern; rather, it is to raise your awarenes s and promote discussion with your health care provider regarding the pres ence of dense breast tissue in addition to other risk factors. Early detection of cancer is very important. We also underst and recommendations regarding breast cancer screening are contro versial. Please discuss with your primary care provider which strateg y is best for you and whether a mammogram is right for you. Your breast images and report will be kept on file here as p art of your permanent medical record and are available for your continui ng care. Thank you for allowing us to help in meeting your health car e needs. Sincerely, Dr. Marr Interpreting Radiologist [facility] (# mo Follow-up) [facility] HNO ID: [id number] Normal 01-17-2019 [facility] Author: Mammography Coordinator Fluker ([id number]) Service: (none) Author Type: Physician Type: Letter Filed: 01/20/2019 11:32 PM Note Text: January 17, 2019 PID: [id number] Bozena Quevedo [address] [place] [address] Dear Ms. Quevedo, Your recent breast imaging examination performed on 9 showed an area that we believe is probably benign (not cancer). A six month follow-up is recommended to ensure your breast health. Piedad ascencio call or EXT: [phone] to schedule an appoint ment for these tests if you have not already done so. You must have a referral/prescription from your physician wh en calling to schedule your appointment. You must also bring the prescript ion with you on the day of your exam to avoid delays. Your mammogram demonstrates that you have dense breast tissu e, which could hide abnormalities. Dense breast tissue, in and of itself, i s a relatively common condition. Therefore, this information is not provided to cause undue concern; rather, it is to raise your awarenes s and promote discussion with your health care provider regarding the pres ence of dense breast tissue in addition to other risk factors. Early detection of cancer is very important. We also underst and recommendations regarding breast cancer screening are contro versial. Please discuss with your primary care provider which strateg y is best for you and whether a mammogram is right for you. Your breast images and report will be kept on file here as p art of your permanent medical record and are available for your continui ng care. Thank you for allowing us to help in meeting your health car e needs. Sincerely, Dr. Marr Interpreting Radiologist [facility] (# mo Follow-up) progress on 2018-11 Protein mass HNO ID: [id number] Normal 12-11-19 19 [facility] conc Author: Loki Garrido Fluker ([id number]) Service: (none) Author Type: Physician Type: Progress Notes Filed: 12/11/2018 1:16 PM Note Text: Chief Complaint Patient presents with: ED Follow-up: [facility] 12/01 GERD HPI Bozena Quevedo is a 48 year old female who presents her e today for ER Follow Up.. Patient was seen in [place] ER 12/01/2018 for atypical chest p ain. Symptom had started on 11/28/2018 and resolved on Sunday but returned on Sunday and seemed to progress and went to ER on Sunday. In ER had NSR on EKG, normal set of cardiac enzymes, CBC and d-dimer normal. RJ had a ME in his early 70's. Former smoker quit 2000 and had smoked up to 5-6 cig/day and had smoked since 19 yo. No hx of HTN or hyperlipidemia. Was released to home and was placed on omeprazole OTC and to ok for 7 days. Has not had any chest pain but sometimes has a sensation lik e it may be something stuck in the lower esophagus even when she hasn't swallowed something.. . Past medical history, appointments, medications, allergies r kelsey. Previous Medical History PAST MEDICAL HISTORY Diagnosis Date - NEGATIVE MEDICAL HISTORY - Vertigo Previous Surgical History PAST SURGICAL HISTORY Procedure Laterality Date - ESOPH W/O [facility] SPEC BALLOON DIL - LIGATE FALLOPIAN TUBE 1994 - PAST SURGICAL HISTORY OF 02/2012 Sebaceous cyst removed - PAST SURGICAL HISTORY OF 2004 uterine ablation - FELICIANO CUT BX BREAST MASS Left 03/11/2018 Family History FAMILY HISTORY Problem Relation Age of Onset - Diabetes Maternal Grandmother - Heart Maternal Grandmother - Hypertension Maternal Grandmother - Diabetes Maternal Grandfather Patient Allergies ALLERGIES Allergen Reactions - Penicillins Rash GI upset Current Medications Current Outpatient Prescriptions on File Prior to Visit: ascorbic acid (VITAMIN C) 500 mg tablet Take 500 mg by mouth once daily. No current facility-administered medications on file prior t o visit. Social History Social History Marital status: Spouse name: Years of education: Number of children: Social History Main Topics Smoking status: Former Smoker Packs/day: 0.00 Years: 0.00 Types: Cigarettes Quit date: 04/10/2001 Smokeless tobacco: Never Used Alcohol use: No Drug use: No Sexual activity: Yes Partners with: Male Review of Symptoms REVIEW OF SYSTEMS See HPI EXAM: BP 112/68 Pulse 60 Resp 12 Wt 58.5 kg (129 lb) BMI 2 6.36 kg/m? General Appearance: Well appearing, alert, in no acute distr ess, well-hydrated, well nourished.. Neck: Supple, no adenopathy; thyroid symmetric, normal size, no bruits. Lungs: lungs clear to auscultation. No wheezing, rhonchi, ra les. Heart: RRR without murmur, gallop, or rubs. No ectopy. Abdomen: Normal abdominal exam, Abdomen soft. Bowel sounds n ormal. No masses, organomegaly. Has mild epigastric tenderness. No gua rding or rebound pain. Health Maintenance List DTAP,TDAP,TD(1 - Tdap) due on 1989 PAP EVERY 5 YEARS due on 2000 HPV EVERY 5 YEARS due on 2000 MAMMOGRAM due on 03/27/2014 DIABETES SCREEN due on 08/26/2021 LIPID SCREEN due on 08/26/2023 INFLUENZA Completed Data reviewed A/P ASSESSMENT/PLAN: 1. Atypical chest pain - ICD9: 786.59, ICD10: R07.89 (primar y diagnosis) Check - STRESS REGULAR W/TREAD 2. Ex-smoker - ICD9: V15.82, ICD10: Z87.891 - Patient to continue 3. Epigastric pain - ICD9: 789.06, ICD10: R10.13 - Begin treatment with Zantac 150 mg BID - Check - XR UPPER GI SINGLE CONTRAST Will get ER report and review to determine if anything else will need looked into. (reports received and reviewed labs and radiolo gic studies as well) Signed Prescriptions Disp Refills ranitidine (ZANTAC) 150 mg tablet 60 tablet 5 Sig: Take 1 tablet by mouth twice daily. F/u 6-8 weeks symptom review. Loki Garrido MD cnov on 2018-12-11 CNOV Office Visit (FAMPWS) Normal 12-11-[address] [facility] BOZENA QUEVEDO ([id number]) 1970 [facility] Date Time Provider Department ([id number]) 12/11/18 11:40 AM LOKI GARRIDO During your visit today, we recorded the following informati on about you: Pulse Respiration Blood pressure Weight 60/minute 12/minute 112/68 58.5 kg Loki Garrido MD 12/11/2018 1:16 PM Signed Chief Complaint Patient presents with: ED Follow-up: [facility] ER 12/01 GERD HPI Bozena Quevedo is a 48 year old female who presents her e today for ER Follow Up.. Patient was seen in [place] ER 12/01/2018 for atypical c hest pain. Symptom had started on 11/28/2018 and resolved on but returned on Sunday and seemed to progress and went to ER on Sunday. In ER had NSR on EKG, normal set of cardiac enzymes, C BC and d-dimer normal. MGF had a ME in his early 70's. Former smoker quit 200 1 and had smoked up to 5-6 cig/day and had smoked since 19 yo. No hx of HTN or hype rlipidemia. Was released to home and was placed on o meprazole OTC and took for 7 days. Has not had any chest pain but sometimes has a sensa tion like it may be something stuck in the lower esophagus even when she hasn't swallowed something.. . Past medical history, appointments, medications, allergies r kelsey. Previous Medical History PAST MEDICAL HISTORY Diagnosis Date - NEGATIVE MEDICAL HISTORY - Vertigo Previous Surgical History PAST SURGICAL HISTORY Procedure Laterality Date - ESOPH W/O [facility] SPEC BALLOON DIL - LIGATE FALLOPIAN TUBE 1994 - PAST SURGICAL HISTORY OF 02/2012 Sebaceous cyst removed - PAST SURGICAL HISTORY OF 2004 uterine ablation - FELICIANO CUT BX BREAST MASS Left 03/11/2018 Family History FAMILY HISTORY Problem Relation Age of Onset - Diabetes Maternal Grandmother - Heart Maternal Grandmother - Hypertension Maternal Grandmother - Diabetes Maternal Grandfather Patient Allergies ALLERGIES Allergen Reactions - Penicillins Rash GI upset Current Medications Current Outpatient Prescriptions on File Prior to Visit: ascorbic acid (VITAMIN C) 500 mg tablet Take 500 mg by mouth once daily. No current facility-administered medications on file prior t o visit. Social History Social History Marital status: Spouse name: Years of education: Number of children: Social History Main Topics Smoking status: Former Smoker Packs/day: 0.00 Years: 0.00 Types: Cigarettes Quit date: 04/10/2001 Smokeless tobacco: Never Used Alcohol use: No Drug use: No Sexual activity: Yes Partners with: Male Review of Symptoms REVIEW OF SYSTEMS See HPI EXAM: BP 112/68 Pulse 60 Resp 12 Wt 58.5 kg (129 lb) BMI 2 6.36 kg/m? General Appearance: Well tad earing, alert, in no acute distress, well-hydrated, well nourished.. Neck: Supple, no adenopathy; thyroid symmetric, normal size, no bruits. Lungs: lungs clear to auscultation. No wheezing, rhonchi, ra les. Heart: RRR without murmur, gallop, or rubs. No ectopy. Abdomen: Normal abdominal exam, Abdomen soft. Jacob wel sounds normal. No masses, organomegaly. Has mild epigastric tenderness. No guarding or rebound pain. Health Maintenance List DTAP,TDAP,TD(1 - Tdap) due on 1989 PAP EVERY 5 YEARS due on 2000 HPV EVERY 5 YEARS due on 2000 MAMMOGRAM due on 03/27/2014 DIABETES SCREEN due on 08/26/2021 LIPID SCREEN due on 08/26/2023 INFLUENZA Completed Data reviewed A/P ASSESSMENT/PLAN: 1. Atypical chest pain - ICD9: 786.59, ICD10: R07.89 (primar y diagnosis) Check - STRESS REGULAR W/TREAD 2. Ex-smoker - ICD9: V15.82, ICD10: Z87.891 - Patient to continue 3. Epigastric pain - ICD9: 789.06, ICD10: R10.13 - Begin treatment with Zantac 150 mg BID - Check - XR UPPER GI SINGLE CONTRAST Will get ER report and review to determine if anything else will need looked into. (reports received and reviewed labs and radiologic marino dies as well) Signed Prescriptions Disp Refills ranitidine (ZANTAC) 150 mg tablet 60 tablet 5 Sig: Take 1 tablet by mouth twice daily. F/u 6-8 weeks symptom review. Loki Garrido MD Referring Provider: SELF [200] Allergies As of Date: 12/11/2018 Noted Allergy Reaction PENICILLINS 10/11/2006 2 - Rash Comments: GI upset Date Reviewed: 12/11/2018 Reviewed by: Loki Garrido - Fully Assessed Reason for Visit: ED Follow-up [821] Cmt: [facility] 12/01 GERD Primary Visit Diagnosis:Atypical chest pain [R07.89] Other Visit Diagnoses:Ex-smoker [Z87.891] Epigastric pain [R10.13] Order(s):STRESS REGULAR W/TREAD [[id number]] Order #: [id number] 4Qty: 1 XR UPPER GI SINGLE CONTRAST [[id number]] Order #: [id number] FU TURE ranitidine (ZANTAC) 150 mg tabletTake 1 tablet by mouth twic e daily.Disp: 60 tabletRfl: 5 Prescriptions as of 12/11/2018 Sig: RANITIDINE 150 MG TABLET Take 1 tablet by mouth twice * ASCORBIC ACID (VITAMIN C) 500* Take 500 mg by mouth once ezra * Problem List As Of Date 12/11/2018 Noted Resolved Rosacea [L71.9] INVALID FOR* Sebaceous cyst [L72.3] INVALID FOR* Scar condition and fibrosis of skin [L90.5] INVALID FOR* Other chronic dermatitis due to solar radiation*INVALID FOR* Fibrocystic change of breast [N60.19] INVALID FOR* More... More... Vertigo [R42] INVALID FOR* More... Ex-smoker [Z87.891] INVALID FOR* More... Prescriptions ordered this encounter Disp Refills Start End RANITIDINE 150 MG TABLET 60 t* 5 12/11/2018 Route: ORAL Sig: Take 1 tablet by mouth twice daily. Disposition: Return for 6-8 weeks f/u epigastric pain. Follow-up and Disposition History Recorded Encounter Status:Closed by LOKI GARRIDO on 12/11/18 xr chest 2 views on 2018-12-01 XR CHEST 2 VIEWS ORIGINAL Normal 12-01-2018 [facility] XR CHEST 2 VIEWS [place] ([place]) ([id number]) CLINICAL STATEMENT: Chest pain COMPARISON: [None] FINDINGS: The heart and mediastinal st ructures are normal . The lungs are clear and the pulmonary vasculature is normal. There are no pleural effusions. The bones are unremarkable. IMPRESSION: No acute thoracic process Interpreted By: Christen Singh MD Preliminary Report By: Christen Singh MD Electronically Signed By: Christen Singh MD Dictated Date: 12/01/2018 3:12:34 AM Prelim Date: 12/01/2018 3:12:34 AM Sign Date: 12/01/2018 3:12:54 AM tropi on 2018-12-01 Troponin I.cardiac <0.015 0.000-0.040 ng/mL Normal 9 [facility] ([place]) ([id number]) Comment: Result Comment: Troponin I r eference ranges (08/03/14): 0.00-0.040 ng/mL Negative an d non-diagnostic. >0.040 ng/mL Consistent with cardiac damage, increased clinical risk and possibility of myocardial in farction. Serial measurements, a rise & fall in test results, clinical histo ry, appropriate symptoms and/or ECG changes may help assess possibility of ME. *Other non-acute coronary sy ndrome conditions such as CHF, myoc arditis, pulmonary emboli, sepsis and cardiac surgery could result in myoc ardial damage and increased troponi n levels. Performed By: #### CBC, ADIF F, ANEU, LIP, GFR, CMP, TROPI, DIMER #### [address] [address] lip on 2018-12-01 Lipase Level 156 73-393 U/L Normal 12-01-2018 [facility] ([place]) ([id number]) Comment: Performed By: #### CBC, ADIF F, ANEU, LIP, GFR, CMP, TROPI, DIMER #### [facility] [address] [place] [id number] dimer on 2018-12-01 Fibrin D-dimer FEU IA <200 0-230 ug/mL Normal 12-01-19 19 [facility] (d) ([place]) ([id number]) Comment: Result Comment: Results repo rted in D-DU ng/ml. Negative for D-dimer. DVT/PE is highly unlikely. Note: False negative results may be seen in patients on anticoagulant therapy. The result of the D-Dimer te st should be evaluated in the context of all the clinical and laboratory data available. In those instances where the laboratory result does not agree with the clinical eval uation, additional tests should be performed accordingly. Performed By: #### CBC, ADIF F, ANEU, LIP, GFR, CMP, TROPI, DIMER #### [facility] [address] [place] [address] cmp on 2018-12-01 Albumin/Globulin mass ratio 1.2 0.9-1.6 ratio [facility] ([id number] Comment: Performed By: #### CBC, ADIF F, ANEU, LIP, GFR, CMP, TROPI, DIMER #### [address] [address] ALP enzyme act/vol 35 38-126 U/L Low 12-01-2018 [facility] ([place]) ([id number]) Comment: Performed By: #### CBC, ADIF F, ANEU, LIP, GFR, CMP, TROPI, DIMER #### [place] [address] Bili Total 0.5 0.2-1.2 mg/dL Normal 12-01-2018 [facility] ([place]) ([id number]) Comment: Performed By: #### CBC, ADIF F, ANEU, LIP, GFR, CMP, TROPI, DIMER #### [place] [address] Globulin mass conc (S) 3.1 1.5-3.8 G/dL Normal 019 [facility] ([place]) ([address] 0) Comment: Performed By: #### CBC, ADIF F, ANEU, LIP, GFR, CMP, TROPI, DIMER #### [address] [address] Protein mass conc 6.8 6.0-8.5 G/dL Normal 12-01-2018 [facility] ([place]) ([id number]) Comment: Performed By: #### CBC, ADIF F, ANEU, LIP, GFR, CMP, TROPI, DIMER #### [place] [address] Albumin mass conc 3.7 3.2-4.8 G/dL Normal 12-01-2018 [facility] ([place]) ([id number]) Comment: Performed By: #### CBC, ADIF F, ANEU, LIP, GFR, CMP, TROPI, DIMER #### [address] [address] ALT enzyme act/vol 19 10-49 U/L Normal 12-01-2018 [facility] ([place]) ([id number]) Comment: Performed By: #### CBC, ADIF F, ANEU, LIP, GFR, CMP, TROPI, DIMER #### [place] [address] AST enzyme act/vol 13 8-34 U/L Normal 12-01-2018 [facility] ([place]) ([id number]) Comment: Performed By: #### CBC, ADIF F, ANEU, LIP, GFR, CMP, TROPI, DIMER #### [place] [address] Calcium mass conc 8.5 8.4-10.1 mg/dL Normal 12-01-2018 [facility] ([place]) ([id number]) Comment: Performed By: #### CBC, ADIF F, ANEU, LIP, GFR, CMP, TROPI, DIMER #### [place] [address] Chloride molar conc 109 98-110 mEq/L Normal 12-01-2018 [facility] ([place]) ([address]) Comment: Performed By: #### CBC, ADIF F, ANEU, LIP, GFR, CMP, TROPI, DIMER #### [place] [address] CO2 molar conc 23 22-32 mEq/L Normal 12-01-2018 [facility] ([place]) ([id number]) Comment: Performed By: #### CBC, ADIF F, ANEU, LIP, GFR, CMP, TROPI, DIMER #### [place] [address] Creatinine mass conc 0.70 0.50-1.20 mg/dL Normal 9 [facility] ([place]) ([address] 0) Comment: Performed By: #### CBC, ADIF F, ANEU, LIP, GFR, CMP, TROPI, DIMER #### [place] [address] Electrolyte Balance 9.0 4.0-15.0 mEq/L Normal 12-01-2018 [facility] ([place]) (0000 0) Comment: Performed By: #### CBC, ADIF F, ANEU, LIP, GFR, CMP, TROPI, DIMER #### [place] [address] Glucose mass conc 96 70-110 mg/dL Normal 12-01-2018 [facility] ([place]) ([id number]) Comment: Performed By: #### CBC, ADIF F, ANEU, LIP, GFR, CMP, TROPI, DIMER #### [place] [address] Potassium molar conc 3.7 3.5-5.0 mEq/L Normal 9 [facility] ([place]) ([address] 0) Comment: Performed By: #### CBC, ADIF F, ANEU, LIP, GFR, CMP, TROPI, DIMER #### [place] [address] Sodium molar conc 141 136-145 mEq/L Normal 12-01-2018 [facility] [facility] ([place] ([id number]) Comment: Performed By: #### CBC, ADIF F, ANEU, LIP, GFR, CMP, TROPI, DIMER #### [place] [address] Urea nitrogen mass conc 16.0 8.0-22.0 mg/dL Normal 2018 [facility] ([place]) ([id number]) Comment: Performed By: #### CBC, ADIF F, ANEU, LIP, GFR, CMP, TROPI, DIMER #### [place] [address] Urea nitrogen/Creatinine mass 22.9 10.0-22.0 ratio High 12-01-2018 [facility] ([place]) ([id number]) Comment: Performed By: #### CBC, ADIF F, ANEU, LIP, GFR, CMP, TROPI, DIMER #### [place] [address] cbc on 2018-12-01 Erythrocyte distribution 12.6 11.5-15.5 % Normal 12-01 [facility] width Ratio (RBC) [facility] ([place]) ([address]) Comment: Performed By: #### CBC, ADIF F, ANEU, LIP, GFR, CMP, TROPI, DIMER #### [place] [address] Hematocrit Volume 40.0 34.0-46.0 % Normal 12-01-2018 A [facility] Fraction (Bld) ([place]) ([id number]) Comment: Performed By: #### CBC, ADIF F, ANEU, LIP, GFR, CMP, TROPI, DIMER #### [place] [address] Hemoglobin mass conc 13.6 12.0-16.0 G/dL Normal 9 [facility] ([facility]) [facility] ([place]) ([id number]) Comment: Performed By: #### CBC, ADIF F, ANEU, LIP, GFR, CMP, TROPI, DIMER #### [place] [address] MCH Entitic mass (RBC) 30.6 27.0-33.0 pg Normal 019 [facility] ([place]) (0000 0) Comment: Performed By: #### CBC, ADIF F, ANEU, LIP, GFR, CMP, TROPI, DIMER #### [place] [address] MCHC mass conc (RBC) 34.0 32.0-36.0 G/dL Normal 9 [facility] ([place]) (0000 0) Comment: Performed By: #### CBC, ADIF F, ANEU, LIP, GFR, CMP, TROPI, DIMER #### [place] [address] MCV Entitic volume 90.0 80.0-99.0 fL Normal 12-01-2018 [facility] ([facility] ([place]) (0000 0) Comment: Performed By: #### CBC, ADIF F, ANEU, LIP, GFR, CMP, TROPI, DIMER #### [place] [address] Platelet mean volume 8.9 6.6-10.5 fL Normal 9 [facility] Entitic volume (Bld) ([place]) ([id number]) Comment: Performed By: #### CBC, ADIF F, ANEU, LIP, GFR, CMP, TROPI, DIMER #### [place] [address] Platelets #/vol (Bld) 211 150-450 10 3/mcL Normal 12-01-19 19 [facility] ([place]) ([id number]) Comment: Performed By: #### CBC, ADIF F, ANEU, LIP, GFR, CMP, TROPI, DIMER #### [address] [address] RBC #/vol (Bld) 4.44 4.10-5.30 10 6/[facility] Normal 12-01-2018 [facility] ([place]) (0000 0) Comment: Performed By: #### CBC, ADIF F, ANEU, LIP, GFR, CMP, TROPI, DIMER #### [address] [address] WBC #/vol (Bld) 7.40 4.50-10.80 10 3/[facility] Normal 12-01-2018 [facility] ([place]) (0000 0) Comment: Performed By: #### CBC, ADIF F, ANEU, LIP, GFR, CMP, TROPI, DIMER #### [place] [address] .neuabs on Neutrophils #/vol 4.20 2.25-8.10 10 3/[facility] Normal 12-01-2018 [facility] ([facility] ([place]) ([id number]) Comment: Performed By: #### CBC, ADIF F, ANEU, LIP, GFR, CMP, TROPI, DIMER #### [address] [address] .gfr on 2018-12-01 GFR >60 Normal 9 [facility] ([place]) ([id number]) Comment: Result Comment: GFR Population mean for Afri can Indian, Non- Americans Ages 20-29 = 116 mL/min/1.73 sq.m. Ages 30-39 = 107 mL/min/1.73 sq.m. Ages 40-49 = 99 mL/min/1.73 sq.m. Ages 50-59 = 93 mL/min/1.73 sq.m. Ages 60-69 = 85 mL/min/1.73 sq.m. Ages 70+ = 75 mL/min/1.73 sq .m. Chronic Kidney Disease: Less than 60 mL/min/1.73 square meters End Stage Renal Disease: Les s than 15 mL/min/1.73 square meters Performed By: #### CBC, ADIF F, ANEU, LIP, GFR, CMP, TROPI, DIMER #### [address] [address] GFR Non- >60 Normal 12-01 [facility] ([place]) ([id number]) Comment: Result Comment: GFR Population mean for Afri can Indian, Non- Americans Ages 20-29 = 116 mL/min/1.73 sq.m. Ages 30-39 = 107 mL/min/1.73 sq.m. Ages 40-49 = 99 mL/min/1.73 sq.m. Ages 50-59 = 93 mL/min/1.73 sq.m. Ages 60-69 = 85 mL/min/1.73 sq.m. Ages 70+ = 75 mL/min/1.73 sq .m. Chronic Kidney Disease: Less than 60 mL/min/1.73 square meters End Stage Renal Disease: Les s than 15 mL/min/1.73 square meters Performed By: #### CBC, ADIF F, ANEU, LIP, GFR, CMP, TROPI, DIMER #### [address] [address] .auto diff on 12-01 Ammonia mass conc 0.80 0.09-1.40 10 3/mcL Normal 12-01-2018 A [facility] () [facility] ([place]) ([id number]) Comment: Performed By: #### CBC, ADIF F, ANEU, LIP, GFR, CMP, TROPI, DIMER #### [address] [address] Basophils #/vol (Bld) 0.10 0.00-0.27 10 3/mcL Normal 12-01-19 19 [facility] ([place]) ([address]) Comment: Performed By: #### CBC, ADIF F, ANEU, LIP, GFR, CMP, TROPI, DIMER #### [address] [address] Basophils/100 WBC (Bld) 0.7 0.0-2.5 % Normal 2018 [facility] ([place]) (0000 0) Comment: Performed By: #### CBC, ADIF F, ANEU, LIP, GFR, CMP, TROPI, DIMER #### [address] [address] Eosinophils #/vol 0.10 0.00-0.65 10 3/mcL Normal 12-01-2018 [facility]) ([id number]) Comment: Performed By: #### CBC, ADIF F, ANEU, LIP, GFR, CMP, TROPI, DIMER #### [address] [address] Eosinophils/100 WBC (Bld) 1.6 0.0-6.0 % Normal [facility] ([place]) (0000 0) Comment: Performed By: #### CBC, ADIF F, ANEU, LIP, GFR, CMP, TROPI, DIMER #### [address] [address] Lymphocytes #/vol 2.20 0.90-4.32 10 3/mcL Normal 12-01-2018 [facility] ([facility] ([place]) ([id number]) Comment: Performed By: #### CBC, ADIF F, ANEU, LIP, GFR, CMP, TROPI, DIMER #### [address] [address] Lymphocytes/100 WBC (Bld) 30.1 20.0-40.0 % Normal [facility] ([place]) ([address]) Comment: Performed By: #### CBC, ADIF F, ANEU, LIP, GFR, CMP, TROPI, DIMER #### [address] [address] Monocytes/100 WBC (Bld) 10.7 2.0-13.0 % Normal 2018 [facility] ([place]) (0000 0) Comment: Performed By: #### CBC, ADIF F, ANEU, LIP, GFR, CMP, TROPI, DIMER #### [address] [address] Neutrophils/100 WBC (Bld) 56.9 50.0-75.0 % Normal [facility] ([place]) ([address]) Comment: Performed By: #### CBC, ADIF F, ANEU, LIP, GFR, CMP, TROPI, DIMER #### [facility] [address] [place] [address] progress on 2018-08 Protein mass HNO ID: [id number] Normal 08-26-20 18 [facility] Author: Conrad Alva (Mens Locker Room Attendant) Oleg [facility] Service: (none) Benoit kuhn Author Type: Nurse Practitioner ([id number]) Type: Progress Notes Filed: 08/26/2018 6:09 PM Note Text: Patient presents with: Physical: Physical and est care SUBJECTIVE: Chief Complaint: Bozena Quevedo is a 47 year old female who presents for a comprehensive problem evaluation. Needing labs for Employee Health Assessment and form completion. New to [facility], follows with Dr. Garrido. Establishing care here at [facility]-Dr. Garrido New concerns today include previous h/o Vertigo, abrupt onse t 11/2016, lingered for 7 months, gradually resolved, CT scans negative . Treated with atb, prednisone, meclizine. Exercises regularly - Running/jogging Does monthly breast self examination - Yes Mammogram is due - No, H/o abdnormal mammogram, 2 Bx and yazmin ariel. Due for diagnostic mammogram left breast 12/2018. Last PAP was 06/2018-Follows with Dr. Quinones, Cholesterol screening is up to date - Yes PAST MEDICAL HISTORY Diagnosis Date - NEGATIVE MEDICAL HISTORY - Vertigo MENSTRUAL HISTORY HORMONE REPLACEMENT: never PAST SURGICAL HISTORY Procedure Laterality Date - ESOPH W/O BRSH SPEC BALLOON DIL - LIGATE FALLOPIAN TUBE 1994 - PAST SURGICAL HISTORY OF 02/2012 Sebaceous cyst removed - PAST SURGICAL HISTORY OF 2004 uterine ablation FAMILY HISTORY Problem Relation Age of Onset - Diabetes Maternal Grandmother - Heart Maternal Grandmother - Hypertension Maternal Grandmother - Diabetes Maternal Grandfather Social History Marital status: Spouse name: Years of education: Number of children: Social History Main Topics Smoking status: Former Smoker Packs/day: 0.00 Years: 0.00 Types: Cigarettes Quit date: 04/10/2001 Smokeless tobacco: Never Used Alcohol use: No Drug use: No Sexual activity: Yes Partners with: Male Immunization History Administered Date(s) Administered Influenza Seasonal Inj Quadrivalent Age 3+ 08/13/2018 ACTIVE PROBLEM LIST Rosacea Other Acne Sebaceous Cyst Scar Condition and Fibrosis of Skin Contact Dermatitis and Other Eczema, Due to Unspecified Caus e SOLAR LENGINES//////SEBACEOUS GLAND DIS NEC TELANGIECTOSIS///CAPILLARY DIS NEC/NOS Other Chronic Dermatitis Due to Solar Radiation Fibrocystic Change of Breast Abnormal Mammogram Breast Mass REVIEW OF SYSTEMS: GENERAL:Denies fever, chills, night sweats, or changes in we ight. DERMATOLOGIC: Denies any new skin conditions, rashes or tatum ging moles. EYES: Denies recent visual changes. and Last eye exam was wi thin past 6 months-wears contacts ENT: Denies hearing loss- occasional tinnitus RESPIRATORY: Denies any cough, dyspnea, or wheezing. CARDIOVASCULAR: Denies any chest pain with exertion or at re st, palpitations, syncope, or edema. BREASTS: Positive for fibroadenoma-2 and 11 o'clock. GASTROINTESTINAL: Denies any nausea, vomiting, abdominal keith n, heartburn, changes in bowel habit, Denies any rectal bleeding. GENITOURINARY: Denies any urinary frequency, urgency, incont inence, dysuria. Denies vaginal odor, discharge or lesions. Denies i rregular vaginal bleeding or spotting. MUSCULOSKELETAL: Denies any joint swelling, crepitus, joint pain, or loss of range of motion., Denies back pain. NEURO: Denies any headaches, tremors, dizziness, vertigo, me cathie loss, confusion., Denies weakness, numbness or tingling.. PSYCHIATRIC: Denies any sleeping problems, history of abuse, marital discord., Denies any anxiety or depression. HEMATOLOGIC/LYMPHATIC/IMMUNOLOGIC: Denies anemia, bruising, bleeding abnormalities. ENDOCRINE: Denies any heat or cold intolerance, polyuria or polydipsia. OBJECTIVE: PHYSICAL EXAMINATION: BP 90/62 (BP Site: Left Arm, BP Position: Sitting, BP Cuff S ize: Regular Adult) Pulse 61 Temp 37 ?C (98.6 ?F) (Tympanic) Resp 1 4 Ht 149 cm (4' 10.66) Wt 59 kg (130 lb) LMP 08/16/2018 BMI 26 .56 kg/m? GENERAL APPEARANCE: Well appearing, alert, in no acute distr ess, well-hydrated, well nourished. SKIN: Skin color, texture, turgor normal, no suspicious rash es or lesions HEAD: No significant findings. EYES: PERRLA, EOMI EARS: External ears normal, canals clear NOSE/SINUSES: Nares normal. Septum midline. OROPHARYNX: Lips, mucosa, and tongue normal, teeth and gums normal, oropharynx normal NECK: Supple, full range of motion, no lymphadenopathy, norm al thyroid, no carotid bruits and no JVD BACK: Back symmetric, Normal curvature, ROM normal, No CVAT. LUNGS: Normal breath sounds, Clear to auscultation, No wheez es, No crackles HEART:Normal PMI, Regular rate and rhythm, Normal heart soun ds, S1 and S2 and No murmurs. ABDOMEN: Soft, Non-tender, No palpable masses, Normal bowel sounds and No hepatosplenomegaly. EXTREMITIES:Normal, No deformities, No skin discoloration, N o edema and Normal pulses bilaterally. NEURO: Awake, alert and oriented x 3, Cranial nerves II-XII grossly intact, Reflexes symmetrical, Normal gait and No involuntary motions. ASSESSMENT/PLAN: 1. Encounter for routine adult health examination without ab normal findings - ICD9: V70.0, ICD10: Z00.00 (primary diagnosis) - Encouraged monthly Breast Self Exam - Check fasting glucose and fasting lipid panel - Follow up for annual exam in one year. - Will check records of last Td - Employee Wellness Form signed, will get lab results from [facility]. - LIPID PANEL BASIC - GLUCOSE FASTING BLD 2. Vertigo - ICD9: 780.4, ICD10: R42 -stable and current remission 3. Screening for lipid disorders - ICD9: V77.91, ICD10: Z13. 220 - LIPID PANEL BASIC 4. Screening for diabetes mellitus - ICD9: V77.1, ICD10: Z13 .1 - GLUCOSE FASTING BLD 5. Fibrocystic changes of left breast - ICD9: 610.1, ICD10: N60.12 - Orders placed, she follows with Dr. Jane - [facility] - US BREAST LTD LT Conrad Dejesus, MSN CROSS CUT SAWYER.WEAVE ROOM SUPERVISOR lipid panel, basic on 2018-08-26 Cholesterol in HDL mass conc 53 >39 mg/dL Normal 1 [facility] ([id number]) Comment: Result Comment: 40-59 mg/dL, Acceptable >59 mg/dL, High: Negative ri sk factor for coronary heart disease <40 mg/dL, Low: Positive ris k factor for coronary heart disease Performed By: #### LIPB #### [address] [phone] Cholesterol in LDL mass conc 119 <100 mg/dL High 1 [facility] ([address]) Comment: Result Comment: <100 mg/dL, Optimal 100-129 mg/dL, Near optimal/ above optimal 130-159 mg/dL, Borderline hi gh 160-189 mg/dL, High >189 mg/dL, Very high Secondary prevention optimal LDL Cholesterol levels are recommended to be < 70 mg/dL Performed By: #### LIPB #### [address] [phone] Cholesterol mass conc 183 <200 mg/dL Normal 08-26-20 18 [facility] ([id number]) Comment: Result Comment: <200 mg/dL, Desirable 200-239 mg/dL, Borderline hi gh >239 mg/dL, High Performed By: #### LIPB #### [address] [phone] Fasting Time 14 hrs Normal 08-26-2018 [facility] (40[address]) Comment: Performed By: #### LIPB #### [address] [phone] LDL:HDL Ratio 2.25 <2.54 Normal 08-26-2018 [facility] (40995) Comment: Result Comment: Reference: 1. National Cholesterol Educ ation Program ATP III Guideline At-A-Glance Quick Desk Reference: National Heart, Lung, and Blood [place]. National Institutes of Health. 2001: NIH Publication No. 01-3305. 2. An International Atherosc lerosis Society position paper: global recommendations for the management of dyslipidemia: executive summary, Atherosclerosis. 2014: 232(2):410-413. Performed By: #### LIPB #### [address] [phone] Non HDL Cholesterol 130 <130 mg/dL High 08-26-2018 [facility] (40382) Comment: Result Comment: <130 mg/dL, Optimal 130-159 mg/dL, Near optimal/ above optimal 160-189 mg/dL, Borderline hi gh 190-219 mg/dL, High >219 mg/dL, Very high Secondary prevention optimal non HDL Cholesterol levels are recommended to be < 100 mg/dL Performed By: #### LIPB #### [address] [place], [place] [phone] TC:HDL Ratio 3.45 <5.10 Normal 08-26-2018 [facility] ([address]) Comment: Performed By: #### LIPB #### [address] [phone] Triglyceride mass conc 54 <150 mg/dL Normal 018 [facility] (97147) Comment: Result Comment: <150 mg/dL, Normal 150-199 mg/dL, Borderline hi gh 200-499 mg/dL, High >499 mg/dL, Very high Performed By: #### LIPB #### [place] [phone] VLDL Cholesterol 11 <30 mg/dL Normal 08-26-2018 [facility] ([address]) Comment: Performed By: #### LIPB #### [place] [phone] glucose, fasting on 2018-08-26 Glucose mass conc 82 74-99 mg/dL Normal 08-26-2018 [facility] (423[address]) Comment: Result Comment: [place] Association guidelines state that a diabetes mellitus diagnosis is preliminarily made when the fasting plasma glucose meets or exceeds 126 mg/dL. In the absence of unequivocal hyperglycemia, results shoul d be confirmed with repeat testing. Patients are at increased risk for diabet es mellitus (prediabetes) when the fasting glucose is 100 to 125 mg/dL. Performed By: #### GLF ####[address], [place] [id number]- [phone] cnov on 2018-08-26 CNOV Office Visit (FAMPWS) Normal 08-26-[address] [facility] BOZENA QUEVEDO ([id number]) 1970 [facility] Date Time Provider Department ([id number]) 08/26/18 9:00 AM CONRAD DEJESUS (VAULT MAKER) FAMPWS During your visit today, we recorded the following informati on about you: Temperature Pulse Respiration Blood pressure 98.6 degrees 61/minute 14/minute 90/62 Weight Height Last Period 59 kg 1.49 m 08/16/18 Conrad Dejesus, MSN CROSS CUT SAWYER.WEAVE ROOM SUPERVISOR 08/26/2018 6:09 PM Signed Patient presents with: Physical: Physical and est care SUBJECTIVE: Chief Complaint: Bozena Quevedo is a 47 year old female who presen for a comprehensive problem evaluation. Needing labs for Employee Health Assessm ent and form completion. New to [facility], follows with Dr. Garrido. Establishing care here at [facility]-Dr. Garrido New concerns today include previous h/o Vertigo, abrupt onse t 11/2016, lingered for 7 months, gradu ally resolved, CT scans negative. Treated with atb, prednisone, meclizine. Exercises regularly - Running/jogging Does monthly breast self examination - Yes Mammogram is due - No, H/o abdnormal mammogram, 2 Bx and yazmin ariel. Due for diagnostic mammogram left breast 12/2018. Last PAP was 06/2018-Follows with Dr. Quinones, Cholesterol screening is up to date - Yes PAST MEDICAL HISTORY Diagnosis Date - NEGATIVE MEDICAL HISTORY - Vertigo MENSTRUAL HISTORY HORMONE REPLACEMENT: never PAST SURGICAL HISTORY Procedure Laterality Date - ESOPH W/O BRSH SPEC BALLOON DIL - LIGATE FALLOPIAN TUBE 1994 - PAST SURGICAL HISTORY OF 02/2012 Sebaceous cyst removed - PAST SURGICAL HISTORY OF 2004 uterine ablation FAMILY HISTORY Problem Relation Age of Onset - Diabetes Maternal Grandmother - Heart Maternal Grandmother - Hypertension Maternal Grandmother - Diabetes Maternal Grandfather Social History Marital status: Spouse name: Years of education: Number of children: Social History Main Topics Smoking status: Former Smoker Packs/day: 0.00 Years: 0.00 Types: Cigarettes Quit date: 04/10/2001 Smokeless tobacco: Never Used Alcohol use: No Drug use: No Sexual activity: Yes Partners with: Male Immunization History Administered Date(s) Administered Influenza Seasonal Inj Quadrivalent Age 3+ 08/13/2018 ACTIVE PROBLEM LIST Rosacea Other Acne Sebaceous Cyst Scar Condition and Fibrosis of Skin Contact Dermatitis and Other Eczema, Due to Unspecified Caus e SOLAR LENGINES//////SEBACEOUS GLAND DIS NEC TELANGIECTOSIS///CAPILLARY DIS NEC/NOS Other Chronic Dermatitis Due to Solar Radiation Fibrocystic Change of Breast Abnormal Mammogram Breast Mass REVIEW OF SYSTEMS: GENERAL:Denies fever, chills, night sweats, or changes in we ight. DERMATOLOGIC: Denies any new skin conditions, rashes or tatum ging moles. EYES: Denies recent visual changes. and Last eye exam was wi thin past 6 months-wears contacts ENT: Denies hearing loss- occasional tinnitus RESPIRATORY: Denies any cough, dyspnea, or wheezing. CARDIOVASCULAR: Denies any chest pain with exert ion or at rest, palpitations, syncope, or edema. BREASTS: Positive for fibroadenoma-2 and 11 o'clock. GASTROINTESTINAL: Denies any nausea, vomiting, abdominal keith n, heartburn, changes in bowel habit, Denies any rectal bleeding. GENITOURINARY: Denies any urinary frequency, urgency, incontinence, dysuria. Denies vaginal odor, dischar ge or lesions. Denies irregular vaginal bleeding or spotting. MUSCULOSKELETAL: Denies any joint swelling, crepitus, joint pain, or loss of range of motion., Denies back pain. NEURO: Denies any headaches, tremors, dizziness, vertigo, me cathie loss, confusion., Denies weakness, numbness or tingling.. PSYCHIATRIC: Denies any sleeping problem s, history of abuse, marital discord., Denies any anxiety or depression. HEMATOLOGIC/LYMPHATIC/IMMUNOLOGIC: Denies anemia, bruising, bleeding abnormalities. ENDOCRINE: Denies any heat or cold intolerance, polyuria or polydipsia. OBJECTIVE: PHYSICAL EXAMINATION: BP 90/62 (BP Site: Left Arm, BP Position: Sitting, BP Cuff Size: Regular Adult) Pulse 61 Temp 37 ?C (98.6 ?F) (Tympanic) Resp 14 Ht 149 cm (4' 10.66) Wt 59 kg (130 lb) LMP 08/16/2018 BMI 26.56 kg/ m? GENERAL APPEARANCE: Well tad earing, alert, in no acute distress, well-hydrated, well nourished. SKIN: Skin color, texture, turgor normal, no suspicious rash es or lesions HEAD: No significant findings. EYES: PERRLA, EOMI EARS: External ears normal, canals clear NOSE/SINUSES: Nares normal. Septum midline. OROPHARYNX: Lips, mucosa, and tongue nor mal, teeth and gums normal, oropharynx normal NECK: Supple, full range of motion, no lymphadenopathy, norm al thyroid, no carotid bruits and no JVD BACK: Back symmetric, Normal curvature, ROM normal, No CVAT. LUNGS: Normal breath sounds, Clear to auscultation, No whe ezes, No crackles HEART:Normal PMI, Regular rate and rhythm, Aimee l heart sounds, S1 and S2 and No murmurs. ABDOMEN: Soft, Non-tender, No palpable masses, Normal bowel sounds and No hepatosplenomegaly. EXTREMITIES:Normal, No deformities, No s kin discoloration, No edema and Normal pulses bilaterally. NEURO: Awake, alert and oriented x 3, Cranial nerves II-XI I grossly intact, Reflexes symmetrical, Normal gait and No involuntary motions . ASSESSMENT/PLAN: 1. Encounter for routine adult health examinatio n without abnormal findings - ICD9: V70.0, ICD10: Z00.00 (primary diagnosis) - Encouraged monthly Breast Self Exam - Check fasting glucose and fasting lipid panel - Follow up for annual exam in one year. - Will check records of last Td - Employee Wellness Form signed, will get lab results from [facility]. - LIPID PANEL BASIC - GLUCOSE FASTING BLD 2. Vertigo - ICD9: 780.4, ICD10: R42 -stable and current remission 3. Screening for lipid disorders - ICD9: V77.91, ICD10: Z13. 220 - LIPID PANEL BASIC 4. Screening for diabetes mellitus - ICD9: V77.1, ICD10: Z13 .1 - GLUCOSE FASTING BLD 5. Fibrocystic changes of left breast - ICD9: 610.1, ICD10: N60.12 - Orders placed, she follows with Dr. Jane - [facility] - [employer] BREAST [employer] LT Conrad Dejesus, MSN CROSS CUT SAWYER.WEAVE ROOM SUPERVISOR Referring Provider: SELF [[id number]] Allergies As of Date: 08/26/2018 Noted Allergy Reaction PENICILLINS 10/11/2006 2 - Rash Comments: GI upset Date Reviewed: 08/26/2018 Reviewed by: Yolanda Gallo Banquet Captain - Fully Assessed Reason for Visit: Physical [83] Cmt: Physical and est care Primary Visit Diagnosis:Encounter for [facility] adult health examination without abnormal findings [Z00.00] Other Visit Diagnoses:Vertigo [R42] Screening for lipid disorders [Z13.220] Screening for diabetes mellitus [Z13.1] Fibrocystic changes of left breast [N60.12] Order(s):LIPID PANEL BASIC [SQLIPB] Order #: [id number] FUTU RE GLUCOSE FASTING BLD [SQGLF] Order #: [id number] FUTURE [facility] [[id number]] Order #: [id number] FUTURE [employer] BREAST LTD LT [[id number]] Order #: [id number] FUTURE Prescriptions as of 08/26/2018 Sig: ASCORBIC ACID (VITAMIN C) 500* Take 500 mg by mouth once ezra * Problem List As Of Date 08/26/2018 Noted Resolved ROSACEA [L71.9] INVALID FOR* ACNE NEC [L70.8] INVALID FOR* SEBACEOUS CYST [L72.3] INVALID FOR* SCAR AND FIBROSIS OF SKIN [L90.5] INVALID FOR* DERMATITIS NOS [L25.9] INVALID FOR* SOLAR LENGINES//////SEBACEOUS GLAND DIS NEC [L7*INVALID FOR* TELANGIECTOSIS///CAPILLARY DIS NEC/NOS [I78.9] INVALID FOR* CHR SOLAR SKIN DAMAGE NOS [L57.8] INVALID FOR* Fibrocystic change of breast [N60.19] INVALID FOR* Abnormal mammogram [R92.8] INVALID FOR* More... Breast mass [N63.0] INVALID FOR* More... Vertigo [R42] INVALID FOR* More... Encounter Status:Closed by CONRAD DEJESUS WEAVE ROOM SUPERVISOR on 08/26/18 [facility] breast ltd lt on 2018-07-12 [facility] US BREAST * * *Final Report* * * Normal [facility] LT DATE OF EXAM: Jul 12 2018 8:43AM Matthew ([id number]) BCW [id number] - [facility] [employer] BREAST LTD LT / PROCEDURE REASON: Unspecified lump in unspecified breast * * * * Physician Interpretation * * * * RESULT: #[id number] - [facility] LISA BILATERAL DIGITAL DIAGNOSTIC MAMMOGRAM WITH CAD: 07/12/2018 HISTORY: Short term follow up left breast /The patient is al so due for her annual bilateral mammogram /Patient had an excisional bi opsy on 03/11/2018 left axillary tail for PASH. RESULT: TECHNIQUE: The study was acquired using full field digital t echnology and interpreted from soft copy. Current study was also evaluated with a Computer Aided Detec tion (CAD). Comparison is made to exams dated: 03/27/2013 mammogram, 2015 mammogram, 06/19/2017 mammogram, 06/19/2017 mammogram, 01/22/20 18 mammogram, and 01/22/2018 ultrasound - [facility]. The tissue of both breasts is heterogeneously dense. This ma y lower the sensitivity of mammography. There are post operative findings and a biopsy clip in the l eft breast. There is a stable oval asymmetry in the left breast upper re gion seen on the mediolateral oblique view only. The parenchymal pattern and appearance of the right breast i s unchanged from 7350-7062 taking into account differences in positionin g and technique. No other significant masses, calcifications, or other findin gs are seen in either breast. INCOMPLETE: NEEDS ADDITIONAL IMAGING EVALUATION The stable oval asymmetry in the left breast is indeterminat e. An ultrasound is recommended. Ultrasound follow up of the probably benign finding seen son ographically in the left breast at 2 o'clock will also be performed. This finding has not been seen discretely mammographically. #[id number] - [facility] [employer] BREAST [employer] LT ULTRASOUND OF LEFT BREAST: 07/12/2018 RESULT: Comparison is made to exams dated: 03/27/2013 mammogram, 2015 mammogram, 06/19/2017 mammogram, 06/19/2017 mammogram, 01/22/20 18 mammogram, and 01/22/2018 ultrasound - [facility]. Color flow and real-time ultrasound of the left breast were performed. Shearer scale images of the real-time examination were reviewed . There is a stable 0.7 cm x 0.4 cm x 0.6 cm oval mass with a circumscribed margin in the left breast at 2 o'clock 8 cm from the nipple. This oval mass is hypoechoic. Color flow imaging demonstrates that the re is no vascularity present. There also is a stable 1.2 cm x 0.6 cm x 0.7 cm oval mass wi th a circumscribed margin in the left breast at 11 o'clock 6 cm f rom the nipple. This oval mass is hypoechoic. Color flow imaging dem onstrates that there is no vascularity present. Additionally, there is a 0.7 cm x 0.5 cm x 0.6 cm oval mass in the left breast at 11 o'clock. This oval mass is hypoechoic. This cor relates as an incidental finding. Color flow imaging demonstrates that there is no vascularity present. In addition, there is a benign 1.1 cm cluster of oval cysts with a smooth internal wall in the left breast at 2 o'clock 6 cm from the nipple. This cluster of oval cysts is anechoic with posterior acoustic en hancement. This correlates as an incidental finding. Color flow imaging demonstrates that there is no vascularity present. IMPRESSION: PROBABLY BENIGN - SHORT TERM INTERVAL FOLLOW-UP RECOMMENDED - FOLLOW-UP RECOMMENDED The stable 0.7 cm x 0.4 cm x 0.6 cm oval mass in the left br east at 2 o'clock resembles a fibroadenoma and is probably benign. The stable 1.2 cm x 0.6 cm x 0.7 cm oval mass in the left br east at 11 o'clock resembles a fibroadenoma and is probably benign. The 0.7 cm x 0.5 cm x 0.6 cm oval mass in the left breast at 11 o'clock has a differential diagnosis of a complicated cyst and is pr obably benign. The 1.1 cm cluster of oval cysts in the left breast at 2 o'c lock is benign. A follow-up mammogram and an ultrasound in 6 months is recom mended to demonstrate stability. Cedric stephens/fred:07/12/2018 10:24:48 Cosmetic Counselor: Tena BURRELL(R)(M), [facility] Mammogram BI-RADS: 0 Incomplete: needs additional imaging ev aluation Ultrasound BI-RADS: 3 Probably benign finding - short term i nterval follow-up recommended Geospatial Scientist: Fred Shiribe Date/Time: Jul 12 2018 8:10A Dictated by: CEDRIC ROSE MD This examination was interpreted and the report reviewed and electronically signed by: CEDRIC ROSE MD on Jul 12 2018 10:24AM EST [id number] [facility] diagnostic lisa on 2018-07-12 [facility] DIAGNOSTIC LISA * * *Final Report* * * Normal 07-12-2018 [facility] DATE OF EXAM: Jul 12 2018 8:43AM [facility] 0620 - [facility] DIAGNOSTIC LISA / ([id number]) PROCEDURE REASON: multiple diagnoses * * * * Physician Interpretation * * * * RESULT: #[id number] - [facility] DIAGNOSTIC LISA BILATERAL DIGITAL DIAGNOSTIC MAMMOGRAM WITH CAD: 07/12/2018 HISTORY: Short term follow up left breast /The patient is al so due for her annual bilateral mammogram /Patient had an excisional bi opsy on 03/11/2018 left axillary tail for PASH. RESULT: TECHNIQUE: The study was acquired using full field digital t echnology and interpreted from soft copy. Current study was also evaluated with a Computer Aided Detec tion (CAD). Comparison is made to exams dated: 03/27/2013 mammogram, 2015 mammogram, 06/19/2017 mammogram, 06/19/2017 mammogram, 01/22/20 18 mammogram, and 01/22/2018 ultrasound - [facility]. The tissue of both breasts is heterogeneously dense. This ma y lower the sensitivity of mammography. There are post operative findings and a biopsy clip in the l eft breast. There is a stable oval asymmetry in the left breast upper re gion seen on the mediolateral oblique view only. The parenchymal pattern and appearance of the right breast i s unchanged from 3590-1887 taking into account differences in positionin g and technique. No other significant masses, calcifications, or other findin gs are seen in either breast. INCOMPLETE: NEEDS ADDITIONAL IMAGING EVALUATION The stable oval asymmetry in the left breast is indeterminat e. An ultrasound is recommended. Ultrasound follow up of the probably benign finding seen son ographically in the left breast at 2 o'clock will also be performed. This finding has not been seen discretely mammographically. #[id number] - [facility] BREAST [facility]TD ULTRASOUND OF LEFT BREAST: 07/12/2018 RESULT: Comparison is made to exams dated: 03/27/2013 mammogram, 2015 mammogram, 06/19/2017 mammogram, 06/19/2017 mammogram, 01/22/20 18 mammogram, and 01/22/2018 ultrasound - [facility]. Color flow and real-time ultrasound of the left breast were performed. Shearer scale images of the real-time examination were reviewed . There is a stable 0.7 cm x 0.4 cm x 0.6 cm oval mass with a circumscribed margin in the left breast at 2 o'clock 8 cm from the nipple. This oval mass is hypoechoic. Color flow imaging demonstrates that the re is no vascularity present. There also is a stable 1.2 cm x 0.6 cm x 0.7 cm oval mass wi th a circumscribed margin in the left breast at 11 o'clock 6 cm f rom the nipple. This oval mass is hypoechoic. Color flow imaging dem onstrates that there is no vascularity present. Additionally, there is a 0.7 cm x 0.5 cm x 0.6 cm oval mass in the left breast at 11 o'clock. This oval mass is hypoechoic. This cor relates as an incidental finding. Color flow imaging demonstrates that there is no vascularity present. In addition, there is a benign 1.1 cm cluster of oval cysts with a smooth internal wall in the left breast at 2 o'clock 6 cm from the nipple. This cluster of oval cysts is anechoic with posterior acoustic en hancement. This correlates as an incidental finding. Color flow imaging demonstrates that there is no vascularity present. IMPRESSION: PROBABLY BENIGN - SHORT TERM INTERVAL FOLLOW-UP RECOMMENDED - FOLLOW-UP RECOMMENDED The stable 0.7 cm x 0.4 cm x 0.6 cm oval mass in the left br east at 2 o'clock resembles a fibroadenoma and is probably benign. The stable 1.2 cm x 0.6 cm x 0.7 cm oval mass in the left br east at 11 o'clock resembles a fibroadenoma and is probably benign. The 0.7 cm x 0.5 cm x 0.6 cm oval mass in the left breast at 11 o'clock has a differential diagnosis of a complicated cyst and is pr obably benign. The 1.1 cm cluster of oval cysts in the left breast at 2 o'c lock is benign. A follow-up mammogram and an ultrasound in 6 months is recom mended to demonstrate stability. Cedric stephens/fred:07/12/2018 10:24:48 Cosmetic Counselor: Tena BURRELL(Lilibeth)([place]), [facility] Mammogram BI-RADS: 0 Incomplete: needs additional imaging ev aluation Ultrasound BI-RADS: 3 Probably benign finding - short term i nterval follow-up recommended Geospatial Scientist: Fred Transcribe Date/Time: Jul 12 2018 8:10A Dictated by: CEDRIC ROSE MD This examination was interpreted and the report reviewed and electronically signed by: CEDRIC ROSE MD on Jul 12 2018 10:24AM EST [id number] surgical pathology on 2018-03-11 SURGICAL Specimen originated from [facility] Normal 03-11-2018 [facility] Specimen #: [id number] Clinic Submitting Physician: JEFFRY JANE ([id number]) [facility] ([id number]) FINAL DIAGNOSIS Breast, left, oriented excision: - Pseudoangiomatous stromal hyperplasia. - Fibrocystic changes including dense stromal fibrosis and m icrocyst formation with microcalcifications. - Changes consistent with previous biopsy site. GZ/JDC/owen/03/13/18 Alisha Ruiz M.D. (Electronic Signature) SPECIMEN SUBMITTED A: LEFT BREAST TISSUE CLINICAL DATA LEFT BREAST ABNORMAL MAMMOGRAM GROSS DESCRIPTION A. Received in formalin in a Ally device labeled with the p atient's name and left breast tissue is an oriented lumpectomy specimen, measuring 2.9 cm (superior-inferior), 3.1 cm (anterior to posterior), 0.7 cm (medial-lateral), and weighing 3.1 grams. The specimen is or iented per the surgeon as follows: Short suture - superior and long suture - lateral. There is an area of concern designated as follows: 6-8, B-F . A needle localizing wire is present. The area of concern is located o n the lateral margin and is inked yellow. The remainder of the specimen is inked as follows: Lateral margin - red, medial margin - orange, anter ior margin - purple, posterior margin - black, superior margin - blue, an d inferior margin - green. The specimen is sectioned from anterior to p osterior into six slices. Identified in the superior aspect of slice 3, is an ill-defined, shearer-white, rubbery biopsy site with embedded r ibbon-shaped biopsy clip, measuring 0.4 x 0.3 x 0.3 cm. The biopsy site i s located 0.1 cm from the superior margin, 0.2 cm from the lateral margin, 0.3 cm from the medial margin, and >1.0 cm from all remaining margins. The remainder of the cut surfaces are composed of yellow, lobulated, glisteni ng adipose tissue interspersed with dense white-shearer fibrous tissue. A discrete mass or lesion is not grossly appreciated. Entirely submitted as follows: A1 anterior margin, perpendicular slice 1, A2 entire slice 2, A 3 biopsy site with entire slice 3, A4 entire slice 4, A5 entire slice 5, A 6 posterior margin, perpendicular slice 6. Please note there is no docum ented time the specimen was removed from the patient. The specimen was plac ed in formalin on 03/11/2018 at 8:55 a.m. Gross examination performed at [facility], [facility] [place] [address] IVORY/luda 03/11/2018 Date of Report: 03/13/2018 Date of Procedure: 03/11/2018 Date of Receipt: 03/11/2018 Submitted by: JEFFRY FANNING ([id number]) Location: B010 Diagnostic interpretation performed at [facility], [address] [facility] [address]. pt ed on 2018-03-11 PT ED HNO ID: [id number] Normal 03-11-2018 [facility] Author: Cierra Piedra) REJI Lozada [facility] ([id number]) Service: (none) Author Type: Registered Nurse Type: Patient Education Filed: 03/11/2018 9:19 AM Note Text: POST OP LEARNING RESPONSE INSTRUCTION PROVIDED TO: Patient and family member METHOD OF INSTRUCTION: Written instruction - handouts Verbal instruction PATIENT / FAMILY RESPONSE: Verbalizes understanding of: POST -OPERATIVE INSTRUCTIONS-Correct actions to take to reduce postoperative complications FOLLOW-UP PLAN: Contact information given. SUPPLEMENTAL MATERIAL: None REFERRAL (RECOMMENDATION): None Electronically Signed By: Cierra Lozada RN In Departmen t: AMBULATORY SURGERY progress on 2018-02 Protein mass HNO ID: [id number] Normal 03-11-20 18 [facility] conc Author: Freya Thomas-T [facility] ([id number]) Service: (none) Author Type: (none) Type: Progress Notes Filed: 03/11/2018 8:41 AM Note Text: Double Identification Patient's idenity was verified by name and : Yes Procedure: Ultrasound Guided Needle Localization Site Verification: left No Nursing No Allergies ALLERGIES Allergen Reactions - Penicillins Rash GI upset Is the patient having any pain? None Physician, Nurse, Technologist:FREYA BERNABE RT PREOPERATIVE/PROCEDURAL VERIFICATION: Patient verified by: Name and Date of Procedure to be performed: Ultrasound Guided Needle Localiza tion Site of the procedure confirmed:Yes Site:left Patient position: Supine Equipment/implant present:Clip and Imaging Data Staff involved: Laureano Aguirre MD Relevant documentation, images, implants or special equipmen t present: Yes MARKING THE SITE: Procedural site verified by:Physically marking the site on o r near incision site, with persistent marker and remains visible on ce patient prepped. PROCEDURAL TIME OUT: All team activity stops Time out verification includes:Audible time-out documented: Yes. Time: 806 Two Patient Identifiers Correct side and site marking Accurate Consent Agreement on the procedure to be done Correct Positioning Imaging and Test Results Properly Labeled and Displayed Safety Precautions Based on Patient History or Medication Alcohol-based skin prep unit dose applicator used: ChloraPre p No soaking of the patient's hair or linens noted Excess prep absorbed by sterile towels Towels removed prior to draping NUMBER OF SPECIMENS SENT TO LAB: 0 Sign in Communication: Completed Time Out: Team Confirms the Correct Patient, Correct Procedu re, Correct Site and Site Marking, Correct Position (if applicable). Moris ascencio: 0806 Affirmation of Time Out: YES Sign Out Discussion: Completed operative no on 201 06-29-16 OPERATIVE NO HNO ID: [id number] Normal 03-11-20 18 [facility] Author: Jeffry Jane [facility] ([id number]) Service: General Surgery Author Type: Physician Type: Operative Report Filed: 03/11/2018 11:24 AM Note Text: [place] [id number] OPERATIVE REPORT NAME: BOZENA QUEVEDO [facility] #: [id number] DATE: 03/11/2018 AGE: 47 SURGEON 1: Jeffry Jane M.D. SURGEON 2: REGIONAL CONSTRUCTION MANAGER 1: REGIONAL CONSTRUCTION MANAGER 2: OPERATION: Left breast needle localization excisional biopsy . ANESTHESIA: General per LMA. PREOPERATIVE DIAGNOSIS: Abnormal breast mammogram. POSTOPERATIVE DIAGNOSIS: Abnormal breast mammogram. OPERATIVE INDICATIONS: OPERATIVE FINDINGS: OPERATIVE PROCEDURE: Risks, benefits, alternatives discussed with the patient. Informed consent was obtained. An operative huddle was done. The patient was alert and oriented. Nursing, Anesthesia, Yazmin gical team at her bedside. Procedure confirmed with both the patient an d the entire operating room team. She was brought to the operating room a nd placed supine on the operating table. General anesthesia was achiev ed. She was positioned on the bed. The wire was determined to be in kamaljit ect location. She was prepped and draped in the usual sterile fa shion. A small incision was made in the left breast. In the upper out er quadrant, there was an X on her skin marked the lesion 4 mm below this marking by ultrasound. The incision was made directly over the skin mar sneha using electrocautery and excisional biopsy was performed. The spec imen was oriented, sent to Radiology for specimen confirmation. While this was being done, 20 mL of 0.25% Marcaine infiltrated. The wound w as irrigated. Hemostasis checked and assured for. Phone call fr Radiology was received. The targeted area of concern contained the bio psy clip, mass, and distal end of the wire was indeed contained within the specimen. Skin was then closed with interrupted 3-0 Polysorb , running 4-0 Biosyn, subcuticular pull-through. Glue and Steri-Strips applied, extubated eventually and brought to the recovery room in goo d condition. COUNTS: Needle, sponge, and instrument count reported as cor rect at the end of the case. INTRAVENOUS FLUIDS: Per record. ESTIMATED BLOOD LOSS: Nil. DRAINS: SPECIMENS: Left breast excisional biopsy. Jeffry Jane M.D. AF:[id number] /[id number] cc: [facility] us loc breast lt on 2018-03-11 [facility] US LOC * * *Final Report* * * Normal 2017 [facility] BREAST LT DATE OF EXAM: Mar 11 2018 8:33AM [facility] ([id number]) [facility]W 0599 - [facility] US LOC BREAST LT / PROCEDURE REASON: Other abnormal and inconclusive findings o n diagnostic imaging of breast * * * * Physician Interpretation * * * * RESULT: #[id number] - [facility] US LOC BREAST LT ULTRASOUND GUIDED NEEDLE LOCALIZATION LEFT BREAST WITH POST DIGITAL MAMMOGRAPHIC AND ULTRASOUND IMAGIN03/11/2018 HISTORY: The patient presents for left ultrasound guided nee dle localization as recommended from recent imaging study. Pre a nd post localization hard copy sonographic images were obtained. PATIENT CONSENT: A time out was performed immediately prior to procedure start with the radiology team, correctly identifying the pat ient name, date of , procedure, anatomy (including marking of site and side), patient position, relevant diagnostic and radiology test res ults, safety precautions, and procedure-specific equipment needs. The pro cedure was explained to the patient including the risks, benefits and a lternatives. Medications and allergies were also reviewed. The risks, inc luding but not limited to infection and bleeding, were reviewed by the performing physician and the patient agreed to undergo the procedure. T roselia radiologist and technologist were present throughout the ent vielka procedure. Audible Time Out Time: 0806 hrs Procedure Start Time: 0807 hrs Procedure Stop Time: [address] Aguirre performed the entire procedure without an assista nt. Correlation is made to exam dated: 01/22/2018 mammogram - [facility]. A needle localization using ultrasound guidance was performe d for the mass located in the left breast at 1 o'clock posterior depth 3.5 cm from the skin to the geometric center of lesion measured on the C C view. This was described on the previous mammography and ultrasound rep orts. The skin was prepped in the usual manner. Local anesthetic was a dministered to the access site. The localization was approached from the caudocranial aspect. A 5.0 cm modified Kopans hookwire appar atus was inserted into the targeted area under ultrasound guidance. A sterile dressing was applied to the access site. Post placement digi roverto mammographic and ultrasound imaging demonstrates the tip tra verses the targeted area. IMPRESSION: NEEDLE LOCALIZATION Needle localization for the mass in the left breast at 1 o'c lock posterior depth 3.5 cm from the skin to the geometric center of lesion measured on the CC view was successful with no apparent post procedure complications. #[id number] - [facility] DIAGNOSTIC LT UNILATERAL LEFT: 03/11/2018 RESULT: Comparison is made to exam dated: 01/22/2018 mammogram - [facility]. The tissue of the left breast is heterogeneously dense. This may lower the sensitivity of mammography. As a separate procedure in a separate room with a dedicated machine, post placement digital mammographic imaging was obtained. The gonsalo tral thick portion of the wire abuts the clip. There is a mass in the left breast posterior depth lateral r egion seen on the craniocaudal view only. POST PROCEDURE MAMMOGRAM FOR MARKER PLACEMENT The mass in the left breast needs additional evaluation. Yulia eastman/fred:03/11/2018 08:59:24 Cosmetic Counselor: Freya BURRELL(R)(M), [facility] Mammogram BI-RADS: Post-procedure mammogram for marker place ment Geospatial Scientist: Fred Transcribe Date/Time: Mar 11 2018 8:34A Dictated by: YULIA AGUIRRE MD This examination was interpreted and the report reviewed and electronically signed by: YULIA AGUIRRE MD on Mar 11 2018 8:59AM EST [id number] [facility] surg breast specimen lt on 2018-03-11 [facility] SURG BREAST * * *Final Report* * * Normal 0 03-11-2018 [facility] SPECIMEN LT DATE OF EXAM: Mar 11 2018 8:51AM [facility] ([id number]) [facility] 0638 - [facility] SURG BREAST SPECIMEN LT / 84 PROCEDURE REASON: Other abnormal and inconclusive findings o n diagnostic imaging of breast * * * * Physician Interpretation * * * * RESULT: #[id number] - [facility] SURG BREAST SPECIMEN LT UNI-PLANAR RADIOGRAPH SPECIMEN IMAGING LEFT BREAST: 8 HISTORY: SPECIMEN. Correlation is made to exams dated: 06/19/2018 mammogram, 02/24 mammogram, and 03/11/2018 localization - [facility]. A surgical specimen was imaged using uni-planar radiograph s pecimen imaging for the previous biopsy site located in the left cassie ast at 1 o'clock posterior depth. IMPRESSION: UNI-PLANAR RADIOGRAPH SPECIMEN IMAGING The imaged specimen includes the lesion, a biopsy clip, and the distal portion of the localization wire. SUMMARY: Urgent Results: Additional images confirmed that the target (with localization clip) were contained in the specimen radiograph . The results of the specimen radiograph were discussed with Dr. Tiff busch the O.R. on 03/11/2018 at 0853 hrs. Yulia eastman/fred:03/11/2018 09:13:06 Cosmetic Counselor: Freya SMITH (R)), [facility] Geospatial Scientist: Fred Transcribe Date/Time: Mar 11 2018 8:51A Dictated by: YULIA AGUIRRE MD This examination was interpreted and the report reviewed and electronically signed by: YULIA AGUIRRE MD on Mar 11 2018 9:13AM EST [id number] [facility] diagnostic lt o n 2018-03-11 [facility] DIAGNOSTIC LT * * *Final Report* * * Normal 03-11-2018 [facility] DATE OF EXAM: Mar 11 2018 8:33AM [facility] 0621 - [facility] DIAGNOSTIC LT / ([id number]) PROCEDURE REASON: Other abnormal and inconclusive findings o n diagnostic imaging of breast * * * * Physician Interpretation * * * * RESULT: #[id number] - [facility] US LOC BREAST LT ULTRASOUND GUIDED NEEDLE LOCALIZATION LEFT BREAST WITH POST DIGITAL MAMMOGRAPHIC AND ULTRASOUND IMAGIN03/11/2018 HISTORY: The patient presents for left ultrasound guided nee dle localization as recommended from recent imaging study. Pre a nd post localization hard copy sonographic images were obtained. PATIENT CONSENT: A time out was performed immediately prior to procedure start with the radiology team, correctly identifying the pat ient name, date of , procedure, anatomy (including marking of site and side), patient position, relevant diagnostic and radiology test res ults, safety precautions, and procedure-specific equipment needs. The pro cedure was explained to the patient including the risks, benefits and a lternatives. Medications and allergies were also reviewed. The risks, inc luding but not limited to infection and bleeding, were reviewed by the performing physician and the patient agreed to undergo the procedure. T roselia radiologist and technologist were present throughout the ent vielka procedure. Audible Time Out Time: 0806 hrs Procedure Start Time: 08 hrs Procedure Stop Time: [address] Aguirre performed the entire procedure without an assista nt. Correlation is made to exam dated: 01/22/2018 mammogram - [facility]. A needle localization using ultrasound guidance was performe d for the mass located in the left breast at 1 o'clock posterior depth 3.5 cm from the skin to the geometric center of lesion measured on the C C view. This was described on the previous mammography and ultrasound rep orts. The skin was prepped in the usual manner. Local anesthetic was a dministered to the access site. The localization was approached from the caudocranial aspect. A 5.0 cm modified Kopans hookwire appar atus was inserted into the targeted area under ultrasound guidance. A sterile dressing was applied to the access site. Post placement digi roverto mammographic and ultrasound imaging demonstrates the tip tra verses the targeted area. IMPRESSION: NEEDLE LOCALIZATION Needle localization for the mass in the left breast at 1 o'c lock posterior depth 3.5 cm from the skin to the geometric center of lesion measured on the CC view was successful with no apparent post procedure complications. #[id number] - [facility] DIAGNOSTIC LT UNILATERAL LEFT: 03/11/2018 RESULT: Comparison is made to exam dated: 01/22/2018 mammogram - [facility]. The tissue of the left breast is heterogeneously dense. This may lower the sensitivity of mammography. As a separate procedure in a separate room with a dedicated machine, post placement digital mammographic imaging was obtained. The gonsalo tral thick portion of the wire abuts the clip. There is a mass in the left breast posterior depth lateral r egion seen on the craniocaudal view only. POST PROCEDURE MAMMOGRAM FOR MARKER PLACEMENT The mass in the left breast needs additional evaluation. Yulia eastman/fred:03/11/2018 08:59:24 Cosmetic Counselor: Freya KOVACS)([place]), [facility] Mammogram BI-RADS: Post-procedure mammogram for marker place ment Geospatial Scientist: Fred Transcribe Date/Time: Mar 11 2018 8:34A Dictated by: YULIA AGUIRRE MD This examination was interpreted and the report reviewed and electronically signed by: YULIA AGUIRRE MD on Mar 11 2018 8:59AM EST [id number] history physical on 2018-03-11 HISTORY HNO ID: [id number] Normal 03-11-2018 [facility] Author: Andreina Coleman (Pa) [facility] Service: (none) Benoit kuhn Author Type: Physician Avionics Electrical Engineer ([id number]) Type: HANDP Filed: 03/11/2018 7:33 AM Note Text: HISTORY AND PHYSICAL EXAMINATION SERVICE DATE: 03/11/2018 SERVICE TIME: 7:28 AM PRIMARY CARE PHYSICIAN: Pati Banks MD REASON FOR VISIT: Bozena Quevedo is a 47 year old female who is scheduled for excision breast lesion,left at the request of Dr. Jeffry Jane fo r consultation. My final recommendation will be communicated b ack to the requesting physician by way of shared medical record or monica er. 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 states most recent mammogram was done 01/21/18. PAST MEDICAL HISTORY Diagnosis Date - NEGATIVE MEDICAL HISTORY - Vertigo PAST SURGICAL HISTORY Procedure Laterality Date - ESOPH W/O [facility] SPEC BALLOON DIL - LIGATE FALLOPIAN TUBE 1994 - PAST SURGICAL HISTORY OF 02/2012 Sebaceous cyst removed - PAST SURGICAL HISTORY OF 2004 uterine ablation FAMILY HISTORY Problem Relation Age of Onset - Diabetes Maternal Grandmother - Heart Maternal Grandmother - Hypertension Maternal Grandmother - Diabetes Maternal Grandfather SOCIAL HISTORY: Social History Marital status: Spouse name: Years of education: Number of children: Social History Main Topics Smoking status: Former Smoker Packs/day: 0.00 Years: 0.00 Types: Cigarettes Quit date: 04/10/2001 Smokeless status: Never Used Alcohol use: No Drug use: No Prior to Admission medications as of 03/11/18 0727 Medication Sig Last Dose Taking ascorbic acid (VITAMIN C) 500 mg tablet Take 500 mg by mouth once daily. Past Week at Unknown time ibuprofen 200 mg tablet Take 200 mg by mouth every 6 hours a s needed. Unknown at Unknown time No medication comments found. ALLERGIES Allergen Reactions - Penicillins Rash GI upset REVIEW OF SYSTEMS: PAIN ASSESSMENT: General: No weight loss, malaise or fevers. Neuro: No history of TIA's, stroke, MARKETING COMMUNICATIONS LEADER tumor, impaired sens orium, hemiplegia, paraplegia or quadraplegia. No neurological symp toms or problems. Respiratory: No history of current cough or dyspnea, or pneu monia in the past 6 weeks. No history of respiratory/pulmonary symptoms o r problems. Cardiovascular: No history of HTN requiring medication, no h istory of angina, CHF, ME, cardiac surgery or stents. Denies rest pain , gangrene or revascularization/amputation for PVD. No history of cardiova scular symptoms or problems. GI: No history of GI symptoms or problems. No history of eso phageal varices, recent ascites, or ETOH greater than 2 drinks per d ay. : No history of dysuria, frequency or incontinence,, stone s or chronic kidney disease CORONER: See HPI : LMP, Patient's last menstrual period was 02/18/20. Endocrine: No history of diabetes. Has not taken steroids wi thin the past 30 days. No history of endocrinological symptoms or problems . Hematology: No history of bleeding or clotting disorder. Pt is not taking anti-coagulation or platelet medications. No history of shelli tological symptoms or problems. Oncology: No history of CA metastasis, chemo within 30 days, or radiotherapy within 90 days. Has not lost 10% of body wt in 6 months. No history of oncological symptoms or problems. Psych: No history of psychiatric symptoms or problems. Musculoskeletal: Negative for joint pain or swelling, back p ain or muscle pain. Skin: Negative for lesions, rash and itching. Objective PHYSICAL EXAM: VITALS: BP 122/57 Pulse 64 Temp 97.5 Resp 18 Ht 4' 11 (1.50 m) Wt 130 lb 15.3 oz (59.4kg) SpO2 99% LMP 02/17/2018 BMI 26.44 kg/ (m2). General: Alert and oriented Skin: Normal color, no rash, no lesions. HEENT: EOM, pupils equal, round and reactive.+glasses Cardiovascular: Normal S1 AND S2, no rubs, murmurs or gallops. No JVD. Pulse regular. Lungs: Normal breath sounds, no wheezes or crackles. Abdomen: Soft, non-tender, no rigidity. Extremities: No deformity, no edema or tenderness, no joint swelling or clubbing. Neurological: Normal cognition and motor skills. Pulses: Carotid and radial pulses normal +2. Diagnostic tests reviewed for today's visit: Lab Value Units Date High Low HB No results within date range. HCT No results within date range. WBC No results within date range. PLT No results within date range. NA No results within date range. K No results within date range. GLUC No results within date range. BUN No results within date range. CREAT No results within date range. PTSEC No results within date range. INR No results within date range. APTT No results within date range. ALT No results within date range. AST No results within date range. TBILI No results within date range. TSH No results within date range. Lab Value Units Date High Low HCGQT No results within date range. UHCG No results within date range. HCG, BODY* No results within date range. Lab Value Units Date High Low ABORHD No results within date range. ABSCREEN No results within date range. No results found for: HBA1C No new labs Assessment ASSESSMENT Patient has the following medical conditions Abnormal mammogram Pseudoangiomatous stromal lesion of left breast METS: Walk a block or two on level ground (2.75 METs) Climb a flight of stairs or walk up a hill (5.50 METs) Run a short distance (8.00 METs) Patient denies any chest pain or undue shortness of breath w ith the above physical activity. ASA Class: 1 ANESTHESIA FINDINGS: Intubation History: No history of difficult intubation Significant Anesthesia Considerations: Postop nausea/vomitin g Airway Exam: General: Normal appearance Mallampati Score is CLASS II ULBT: Class I - Lower incisors can bite the upper lip above the alpesh line Neck: Normal appearance and function, Distance from hyoid to mentum during neck extension is at least 3 finger breaths Mouth: Mouth opening greater than 2 finger breaths Dentition: Intact Airway History: No abnormal airway history STOP BANG Score: 0 PLAN This patient is optimally prepared for surgery. CONSULTS: Patient does not require consults for optimization at this t [facility]. The Following Tests/Procedures Have Been Initiated: Labs not indicated per PACC protocol Planned Anesthetic: General Instructions Given to Patient: Patient given verbal and written preop instructions and voic es comprehension and compliance. SIGNATURE: Andreina Gonzalez PA-C PATIENT NAME: Bozena edouard DATE: March 11, 2018 TIME: 7:28 AM PAGER/CONTACT #: brief op not on 201 06-29-16 BRIEF OP NOT HNO ID: [id number] [place] 03[birth year]-[address] [place] [address] Author: Jeffry Jane [facility] Service: General Surgery ([id number]) Author Type: Physician Type: Brief Op Note Filed: 03/11/2018 9:00 AM Note Text: BRIEF OP NOTE LOG ID: [id number] Surgery/Procedure Date: 03/11/2018 Incision/Procedure Start Time: 8:44 AM Incision Close/Procedure End Time: 8:57 AM Surgeon(s)/Proceduralist(s) and Avionics Electrical Engineer(s): Surgeon(s) and Role: * Jeffry Jane - Primary Procedure(s): left breast NL-excisional biopsy Anesthesia: General Findings: see dictation Estimated Blood Loss: 3 mls Specimens: see dictation Complications: None Pre-Op/Pre-Procedure Diagnosis: abn MG Post-Op/Post-Procedure Diagnosis: * No post-op diagnosis ent ered * SIGNATURE: Jeffry Jane MD PATIENT NAME: Bozena bustos DATE: March 11, 2018 TIME: 8:59 AM PAGER/CONTACT #: anes preop on 03-11 ANES PREOP HNO ID: [id number] Normal 03-11-2018 [facility] Author: Jazmyne May ([id number]) Service: Anesthesiology Author Type: Anesthesiologist Type: Anesthesia PreOp Filed: 03/11/2018 7:35 AM Note Text: ANESTHESIOLOGY DAY OF SURGERY NOTE SERVICE DATE: 03/11/2018 SERVICE TIME: 7:23 AM : 1970 Procedure(s) (LRB): EXCISION BREAST LESION IDENTIFIED BY PREOPERATIVE PLACEMENT RADIOLOGICAL MARKER, OPEN, SINGLE LESION (Left) Surgeon(s): Jeffry Jane Estimated body mass index is 26.45 kg/(m2) as calculated fro m the following: Height as of 04/10/13: 149.9 cm (4' 11). Weight as of this encounter: 59.4 kg (130 lb 15.3 oz). Most recent hematocrit and potassium results: No results found for this basename: HCT,HEMATOCRIT,K,POTASSI UM ANES DOS/PREOP NOTE: Vitals: 03/11/18 0652 BP: 122/57 Pulse: 64 Resp: 18 Temp: 36.4 ?C (97.5 ?F) TempSrc: Temporal Artery SpO2: 99% Weight: 59.4 kg (130 lb 15.3 oz) ACTIVE PROBLEM LIST Rosacea Other Acne Sebaceous Cyst Scar Condition and Fibrosis of Skin Contact Dermatitis and Other Eczema, Due to Unspecified Caus e SOLAR LENGINES//////SEBACEOUS GLAND DIS NEC TELANGIECTOSIS///CAPILLARY DIS NEC/NOS Other Chronic Dermatitis Due to Solar Radiation Fibrocystic Change of Breast Abnormal Mammogram Breast Mass PAST MEDICAL HISTORY Diagnosis Date - NEGATIVE MEDICAL HISTORY - Vertigo PAST SURGICAL HISTORY Procedure Laterality Date - [facility] BALLO[facility] DIL - LIGATE FALLOPIAN TUBE 1994 - PAST SURGICAL HISTORY OF 02/2012 Sebaceous cyst removed - PAST SURGICAL HISTORY OF 2004 uterine ablation FAMILY HISTORY Problem Relation Age of Onset - Diabetes Maternal Grandmother - Heart Maternal Grandmother - Hypertension Maternal Grandmother - Diabetes Maternal Grandfather Social History: Social History Substance Use Topics - Smoking status: Former Smoker Types: Cigarettes Quit date: 04/10/2001 - Smokeless tobacco: Not on file - Alcohol use No No current facility-administered medications on file prior t o encounter. Current Outpatient Prescriptions on File Prior to Encounter: ascorbic acid (VITAMIN C) 500 mg tablet Take 500 mg by mouth once daily. ibuprofen 200 mg tablet Take 200 mg by mouth every 6 hours a s needed. Current Facility-Administered Medications: lidocaine 10 mg/mL (1 %) 1-2 mg injection (XYLOCAINE) 0.1-0. 2 mL INTRADERMAL PRN Susan (Pa-C) Farine lactated ringers infusion 5-30 mL/hr INTRAVENOUS CONTINUOUS Susan (Pa-C) Farine Last Rate: 30 mL/hr at 03/11/18 0710 30 mL/hr at 02/24 05/13 0710 diazePAM 5 mg tab(s) (VALIUM) 5 mg ORAL Pre-Op Once Palma C Dewitt Allergies: ALLERGIES Allergen Reactions - Penicillins Rash GI upset DOS EXAM: Adequate NPO status: Yes Anesthetic risks, benefits, alternatives, personnel and cons ent discussed: Yes Patient agrees to proceed: Yes Previous Anesthesia: No history of adverse event. Airway Assessment: MP 1; Neck ROM: Full ROM without neurolog ic symptoms; Airway Evaluation: No significant abnormalities Symptoms of Sleep Apnea: None Dentition: Teeth intact Additional Physical Exam: Lungs: Patient health status unchanged since recent history and physical. See history and physical for exam findings. Cardiac: Patient health status unchanged since recent histor y and physical. See history and physical for exam findings. Additional Pertinent Findings: N/A Blood Products: Not anticipated for this procedure. Anesthetic Plan: General, Standard ASA Monitors Pain Management Plan: Parenteral or Oral ASA Class: 1 Other Medical Problems: Hx of vertigo Chronic Beta Nazia medication administered within 24 hours : N/A I have interviewed and examined the patient. I have reviewed the medical record and/or the pre-anesthesia evaluation, pertinent labs, and test results. Significant changes in the patient's condition since the His tory and Physical, not otherwise documented in primary service progre notes: No This contains updated information obtained within 48 hours o f Surgery/Procedure. SIGNATURE: Carlos Mcdonald MD PATIENT NAME: Bozena lange DATE: March 11, 2018 TIME: 7:23 AM CSN: [id number] anes post on 03-11 ANES POST HNO ID: [id number] Normal 03-11-2018 [facility] Author: Jazmyne May ([id number]) Service: Anesthesiology Author Type: Anesthesiologist Type: Anesthesia PostOp Filed: 03/11/2018 1:10 PM Note Text: POST ANESTHESIA EVALUATION NOTE SERVICE DATE: 03/11/2018 SERVICE TIME: 1:09 PM : 1970 Vitals: 03/11/18 0652 03/11/18 0908 03/11/18 1045 Temp: 36.4 ?C (97.5 ?F) 36.3 ?C (97.3 ?F) 36.8 ?C (98.2 ?F) 03/11/18 0930 03/11/18 0945 03/11/18 1000 03/11/18 1030 BP: 100/61 97/57 100/61 99/62 03/11/18 0930 03/11/18 0945 03/11/18 1000 03/11/18 1030 Pulse: (!) 55 (!) 49 (!) 55 (!) 50 03/11/18 0930 03/11/18 0945 03/11/18 1000 03/11/18 1030 Resp: 18 16 16 16 03/11/18 0930 03/11/18 0945 03/11/18 1000 03/11/18 1030 SpO2: 100% 99% 100% 98% Validated Vital Signs: Yes POST ANES STATUS: No apparent anesthetic complications. The patient is appropriately hydrated with stable respiratory and cardiovas cular status. Patient has safe and adequate airway control. The patient mercado s appropriate pain relief and no significant post operative nausea or vomi ting. The patient has achieved baseline mental status. Further assessment by Anesthesia Service: None Other Remarks: SIGNATURE: Carlos Mcdonald MD PATIENT NAME: Bozena lange DATE: March 11, 2018 TIME: 1:09 PM PAGER/CONTACT #: [id number] nursing prog on 201 06-29-13 Protein mass conc HNO ID: [id number] Normal [facility] Author: Kay (Rn) REJI Weston Castro ([id number]) Service: (none) Author Type: Registered Nurse Type: Nursing Progress Note Filed: 03/08/2018 10:02 AM Note Text: PACC Nurse Progress Note History AND Physical: PACC Visit Date: N/A- HANDP to be done [place] is also aware as noted in film masker comments Original HANDP Date: 02/07/18 ( out of date) ED visit Date: N/A Outside HANDP Scanned Date: N/A Labs Within Last 6 Months: N/A Imaging Within Last 12 Months: See chart Cardiac Testing:// N/A Last Menstrual Period: LMP Date: 02/18/18 Postmenopausal >1yr: No, S/P Hysterectomy: N/A Risk Assessment: N/A Anesthesia Review: DOS Narrative: N/A Pre-op Considerations: N/A Chart Check: COMPLETED Kay Weston RN March 08, 2018 9:56 AM progress on 2018-01 Protein mass HNO ID: [id number] Normal 02-08-20 [facility] Author: Susan Foster) Lobo [facility]er Service: (none) ([id number]) Author Type: Physician Avionics Electrical Engineer Type: Progress Notes Filed: 02/11/2018 11:31 AM Note Text: NEW BREAST PATIENT - Non-cancer diagnosis CC: left breast mass HPI: Bozena Quevedo is a 47 year old White female who presen ts to the [facility] at the request of Dr. Quinones for an opinion regarding an abnormal mammogram The patient underwent a screening mammogram (in [place]) 05/27 which showed a focal asymmetry within the posterior left upper out er quadrant. ? Whole LEFT breast ultrasound was performed 06/20/2017, which showed a 7 mm hypoechoic mass at 2:00. A 7 mm hypoechoic mass was also see n at 11:00. Six month follow-up was recommended. ? The patient then had a left breast biopsy by Dr. Walters. Per the patient's note, a clip was placed. Post-clip mammogr am not provided. Location of biopsy could not be determined, as report did no t specify which lesion was targeted. Outside pathology scanned under lab includes a report negat bonny for malignancy in the left breast (no exact location). ? A LEFT whole breast ultrasound was performed ([facility]ner) on . A hypoechoic 7 mm mass is seen at 2:00. Ultrasound guided core biopsy was recommended. The 11:00 mass was no longer seen on that imaging study. Films were then reviewed by [facility] ([place]) Recommendation was for post biopsy clip films as well as a L EFT US to evaluate mass at 2:00 Patient had also noted a palpable complaint in the left axil mini tail at the time of work-up States she has had this area for about 5 years- and was appa rently told it was a torn ligament Over the past year, felt that the area was becoming more pro minent and noted more discomfort. It causes her much anxiety knowing th at it is there. It does not hurt daily, but causes horrible pain th e week prior to her period. Her bra also causes some significant discomfo rt to the area at other times of the month. No nipple discharge or ski n changes. No previous breast surgeries except for these recent biopsies. No family history of breast cancer. Diagnostic mamm performed 01/22/18 here at [facility] did not show a n abnormality to correlate with the above 11:00 and 2:00 masses seen on [facility] US however a 1 cm asymmetry was noted at 12 o'clock middle dept h as well as an asymmetry posterior depth superior region Follow-up US at [facility] 01/22/18 showed a 1.5 cm x 2.7 cm x 1 cm area in the left axillary tail 13 CMFN ?This is an area of benign appear ing fibroglandular tissue and corresponds to the area of palpabl e concern and pain indicated by the patient. Findings may represent axilla ry accessory breast tissue vs PASH. Biopsy recommended. On same US, there also is a 0.8 cm x 0.6 cm x 0.4 cm oval ma ss with an indistinct and circumscribed margin in the left breast at 2 o'clock posterior depth 8 CMFN This abnormality is not significantly changed. Thought to re semble FA- 6 month follow-up mamm and US recommended Additionally, there is a 1.2 cm x 0.7 cm x 0.6 cm oval mass with an indistinct and circumscribed margin in the left breast at 11 o'clock PD 6 CMFN.Follow-up US in 6 months recommended In addition, there is a benign area in the left breast at 2 o'clock anterior depth. ? Biopsy site changes are noted at 2 o'clock 2 CMFN with associated clip from prior vacuum assisted (Mammotome) US-guided biopsy at [place] Subsequently, US guided core biopsy was performed which show ed: Left breast, 1 o'clock, 13 CMFN (ribbon clip) - Pseudoangiom atous stromal hyperplasia. Sclerosing adenosis. Pathology results are concordant with imaging findings. 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 ibuprofen 200 mg tablet Take 200 mg by mouth every 6 hours a s needed. No current facility-administered medications for this visit. ALLERGIES: Penicillins - noted as a child, unsure of reaction REVIEW OF SYSTEMS: GENERAL: No weight loss, malaise or fevers HEENT: Negative for frequent or significant headaches, histo ry of severe vertigo related to viral inner-ear infection, completed ther apy for this but still occasionally gets mild vertigo RESPIRATORY: Negative for cough, hemoptysis, wheezing, COPD, dyspnea or shortness of breath CARDIOVASCULAR: Negative for chest pain, leg swelling, hyper tension, CHF or palpitations GI: No nausea, vomiting, or diarrhea. : No history of dysuria, frequency or incontinence CORONER: History of uterine ablation at ag 34, fallopian tube li gation in 1994. LMP: 01/24/2018. MUSCULOSKELETAL: Negative for joint pain or swelling, back p ain or muscle pain SKIN: Negative for lesions, rash, and itching PSYCH: Negative for sleep disturbance, mood disorder and rec ent psychosocial stressors. All other reviewed and negative other than HPI. Susan Foss PA-C I reviewed the PMH, PSH, FHx, SHx, OBHx, and agree with the above. I reviewed the HPI in detail with the patient and edited as ab bennett. PHYSICAL EXAM: General:well-nourished, healthy, alert and oriented x 3, kimani m Skin:warm, dry, skin color, texture, turgor normal Head/Eyes:normocephalic, atraumatic and anicteric Neck:supple, symmetrical, no thyromegly Respiratory: Chest symmetrical with respirations, non labore d, clear to auscultation bilaterally Cardiology: Heart regular rate and rhythm with no murmur Abdomen: soft, nondistended. No hepatomegly., No masses Musculoskeletal: Upper extremities with normal range of keanu on, no lymphedema present, patient ambulates independently. Breast: The breast skin and nipple areolar complexes appear normal without retraction or lesions. There is no nipple discharge. Left br east examined in sitting position, 1cm palpable soft mobile mass left uppe r outer quadrant/axillary tail. No other dominant masses. Regional Lymph Nodes: There is no concerning supraclavicular , infraclavicular or axillary lymphadenopathy. IMAGING: Mammogram and Ultrasound films and reports were reviewed by myself and findings were discussed with the patient. The results are as follows: see HPI PATHOLOGY: Pathology reports from [facility] were reviewed and discussed with the Patient. IMPRESSION Bozena Quevedo is a 47 year old White female with a new ly diagnosed LEFT Abnormal Mammogram. Biopsy proven PASH PLAN: Discussed findings of core biopsy. Discussed underlying path ology that could explain this finding. Discussed rationale for the jimmie mmendation for surgical excision of the area for full histologic confir mation; discussed r/b/a to surgery Scheduled electively 03/11 at [facility] Preops done today, no imaging or labs needed My final recommendation will be communicated back to the ref erring physician by way of shared medical record and/or written let ter via US mail. Total face to face time was 45 minutes with >50% spent on co unseling the patient or coordinating her care. Jeffry Jane MD cc: RAIN QUINONES [address] [place] [phone] hosp on 2018-02-07 HOSP Patient:Bozena Quevedo [facility] MRN: Matthew ([id number]) Height:4' 11(1.499 m) Weight:130 lb 15.3 oz (59.4 kg) Outpatient Medications as of 03/11/18: ascorbic acid (VITAMIN C) 500 mg tablet ibuprofen 200 mg tablet Admission/Clinic Administered Medications as of 03/11/18: lidocaine 10 mg/mL (1 %) 1-2 mg injection (XYLOCAINE) lactated ringers infusion diazePAM 5 mg tab(s) (VALIUM) scopolamine 1 mg over 3 days 1 Patch (TRANSDERM-SCOP) scopolamine - VERIFY patch scopolamine - REMOVE PATCH Problem List: Rosacea [L71.9] Other acne [L70.8] Sebaceous cyst [L72.3] Scar condition and fibrosis of skin [L90.5] Contact dermatitis and other eczema, due to unspecified caus e [L25.9] SOLAR LENGINES//////SEBACEOUS GLAND DIS NEC [L73.8] TELANGIECTOSIS///CAPILLARY DIS NEC/NOS [I78.9] Other chronic dermatitis due to solar radiation [L57.8] Fibrocystic change of breast [N60.19] Abnormal mammogram [R92.8] Breast mass [N63.0] Allergies: Penicillins Date Verified: 03/11/18 Lab Values No results within the last 30 days for the following basenam es: K,HCT Progress Notes ([facility] [facility] Freya Bernabe Mamm-T 03/11/2018 8:41 AM Signed Double Identification Patient's idenity was verified by name and : Yes Procedure: Ultrasound Guided Needle Localization Site Verification: left No Nursing No Allergies ALLERGIES Allergen Reactions - Penicillins Rash GI upset Is the patient having any pain? None Physician, Nurse, Technologist:FREYA BERNABE RT PREOPERATIVE/PROCEDURAL VERIFICATION: Patient verified by: Name and Date of Procedure to be performed: Ultrasound Guided Needle Localiza tion Site of the procedure confirmed:Yes Site:left Patient position: Supine Equipment/implant present:Clip and Imaging Data Staff involved: Laureano Aguirre MD Relevant documentation, images, implants or special equipmen t present: Yes MARKING THE SITE: Procedural site verified by:Physically marking the site on or near incision site, with persistent marker and remains visible once patien t prepped. PROCEDURAL TIME OUT: All team activity stops Time out verification includes:Audible time-out documented: Yes. Time: 806 Two Patient Identifiers Correct side and site marking Accurate Consent Agreement on the procedure to be done Correct Positioning Imaging and Test Results Properly Labeled and Displayed Safety Precautions Based on Patient History or Medication Alcohol-based skin prep unit dose applicator used: ChloraPre p No soaking of the patient's hair or linens noted Excess prep absorbed by sterile towels Towels removed prior to draping NUMBER OF SPECIMENS SENT TO LAB: 0 Sign in Communication: Completed Time Out: Team Confirms the Correct Patient, Correct P rocedure, Correct Site and Site Marking, Correct Position (if applicable). Time: 07 01 Affirmation of Time Out: YES Sign Out Discussion: Completed Progress Notes ([facility] MAIN): [place]is Young [facility] 02/26/2018 12:26 PM Signed Patient has surgery scheduled on 03/11 an d pre admission testing needs to speak with someone regarding her appointments. They can be reached a [phone]. Susan Foss PA-C 02/26/2018 1:51 PM Signed Attempted to contact number below Left VM Susan Foss PA-C February 26, 2018 1:51 PM cnov on 2018-02-07 CNOV Office Visit (BRCRBD) Normal 02-08-[address] [place] [address] [facility] DANONAZARIOBOZENA ([id number]) 1970 [facility] Date Time Provider Department ([id number]) 02/07/18 8:45 AM JEFFRY JANE BRCRBD During your visit today, we recorded the following informati on about you: Susan Foss PA-C 02/11/2018 11:31 AM Signed NEW BREAST PATIENT - Non-cancer diagnosis CC: left breast mass HPI: Bozena Quevedo is a 47 year old White female who presents to the [facility] at the request of Dr. Gabby busch for an opinion regarding an abnormal mammogram The patient underwent a screening mammogram (in [place]) 05/27 which showed a focal asymmetry within the posterior left upper out er quadrant. ? Whole LEFT breast ultrasound was performed 06/20/2017, which showed a 7 mm hypoechoic mass at 2:00. A 7 mm hypoechoic mass was also see n at 11:00. Six month follow-up was recommended. ? The patient then had a left breast biopsy by Dr. Walters. Per the patient's note, a clip was placed. Post-clip m ammogram not provided. Location of biopsy could not be determined, as report did not specify which lesion was targeted. Outside pathology scanned under lab includes a report ANDquo t;negative for malignancyANDquot; in the left breast (no exact location). ? A LEFT whole breast ultrasound was performed ([place]) on . A hypoechoic 7 mm mass is seen at 2:00. Ultrasound guided core biopsy was recommended. The 11:00 mass was no longer seen on that imaging study. Films were then reviewed by [facility] ([place]) Recommendation was for post biopsy clip films as well as a LEFT US to evaluate mass at 2:00 Patient had also noted a palpable complaint in the lef t axillary tail at the time of work-up States she has had this area for about 5 years- and was apparently told it was a ANDquot;torn ligamentANDquot; Over the past year, felt that the area was becoming mo re prominent and noted more discomfort. It causes her much anxiety know ing that it is there. It does not hurt daily, but causes ANDquot;horri ble painANDquot; the week prior to her period. Her bra also causes some significant discomfor t to the area at other times of the month. No nipple discharge or skin changes. N o previous breast surgeries except for these r ecent biopsies. No family history of breast cancer. Diagnostic mamm performed 01/22/18 here at [facility] did not show an abnormality to correlate with the above 11:00 and 2:00 masses s een on Abner US however a 1 cm asymmetry was noted at 12 o'clock middle depth as well as an asymmetry posterior depth superior region Follow-up US at [facility] 01/22/18 showed a 1.5 cm x 2.7 cm x 1 cm area in the left axillary tail 13 CMFN ?This is an area of benign appearing f ibroglandular tissue and corresponds to the area of palpable concern and pain indicated by the patient. Findings may represent axillary acc essory breast tissue vs PASH. Biopsy recommended. On same US, there also is a 0.8 cm x 0.6 cm x 0.4 cm oval ma ss with an indistinct and circumscribed margin in the left breast at 2 o'clock posterior depth 8 CMFN This abnormality is not significantly ch anged. Thought to resemble FA- 6 month follow-up mamm and US recommended Additionally, there is a 1.2 cm x 0.7 cm x 0.6 cm oval mass with an indistinct and circumscribed margin in the left breast at 1 1 o'clock PD 6 CMFN.Follow-up US in 6 months recommended In addition, there is a benign area in the left breast at 2 o'clock anterior depth. ? Biopsy site changes are noted at 2 o'clock 2 CMFN with associated clip from prior vacuum assisted (Mammotome) US-guided biopsy at [place] Subsequently, US guided core biopsy was performed which show ed: Left breast, 1 o'clock, 13 CMFN (ribbon clip) - Pseudoangiom atous stromal hyperplasia. Sclerosing adenosis. Pathology results are concordant with imaging findings. 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 ibuprofen 200 mg tablet Take 200 mg by mouth every 6 hours a s needed. No current facility-administered medications for this visit. 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 : No history of dysuria, frequency or incontinence CORONER: History of uterine ablation at ag 34, fallopian tube ligation in 1994. LMP: 01/24/2018. MUSCULOSKELETAL: Negative for joint pain or swelling, back pain or muscle pain SKIN: Negative for lesions, rash, and itching PSYCH: Negative for sleep disturbance, mood disorder a nd recent psychosocial stressors. All other reviewed and negative other than HPI. Susan Foss PA-C I reviewed the PMH, PSH, FHx, SHx, OBHx, and agr ee with the above. I reviewed the HPI in detail with the patient and edited as above. PHYSICAL EXAM: General:well-nourished, healthy, alert and oriented x 3, kimani m Skin:warm, dry, skin color, texture, turgor normal Head/Eyes:normocephalic, atraumatic and anicteric Neck:supple, symmetrical, no thyromegly Respiratory: Chest symmetrical with respirations, non labore d, clear to auscultation bilaterally Cardiology: Heart regular rate and rhythm with no murmur Abdomen: soft, nondistended. No hepatomegly., No masses Musculoskeletal: Upper extremities with normal r kym of motion, no lymphedema present, patient ambulates independently. Breast: The breast skin and nipple areolar complexes appear normal without retraction or lesions. There is no nipple discharge. L eft breast examined in sitting position, 1cm palpable soft mobile mass left upper o uter quadrant/axillary tail. No other dominant masses. Regional Lymph Nodes: There is no concerning sup raclavicular, infraclavicular or axillary lymphadenopathy. IMAGING: Mammogram and Ultrasound hero ms and reports were reviewed by myself and findings were discussed with the patient. The results are as follows: see HPI PATHOLOGY: Pathology reports from [facility] were reviewed and discussed with the Patient. IMPRESSION Bozena Quevedo is a 47 year old White femal e with a newly diagnosed LEFT Abnormal Mammogram. Biopsy proven PASH PLAN: Discussed findings of core biopsy. Discussed underlyin g pathology that could explain this finding. Discussed rationale for th e recommendation for surgical excision of the area for full histologic confirmation; discu ssed r/b/a to surgery Scheduled electively 03/11 at [facility] loc Preops done today, no imaging or labs needed My final recommendation will be communicated back to the referring physician by way of shared medical record and/or written letter via odilia maher. Total face to face time was 45 minutes with ANDg t;50% spent on counseling the patient or coordinating her care. Jeffry Jane MD cc: RAIN QUINONES [address] [place] [phone] Referring Provider: RAIN QUINONES [[id number]] Allergies As of Date: 02/07/2018 Noted Allergy Reaction PENICILLINS 10/11/2006 2 - Rash Comments: GI upset Date Reviewed: 02/07/2018 Reviewed by: Linda (Rn) REJI Baer - Fully Assessed Reason for Visit: New Patient [172] Primary Visit Diagnosis:Abnormal mammogram [R92.8] Other Visit Diagnosis:Pseudoangiomatous stromal hyperplasi a of breast [N62] Prescriptions as of 02/07/2018 Sig: ASCORBIC ACID (VITAMIN C) 500* Take 500 mg by mouth once ezra * IBUPROFEN 200 MG TABLET Take 200 mg by mouth every 6 * Problem List As Of Date 02/07/2018 Noted Resolved ROSACEA [L71.9] INVALID FOR* ACNE NEC [L70.8] INVALID FOR* SEBACEOUS CYST [L72.3] INVALID FOR* SCAR AND FIBROSIS OF SKIN [L90.5] INVALID FOR* DERMATITIS NOS [L25.9] INVALID FOR* SOLAR LENGINES//////SEBACEOUS GLAND DIS NEC [L7*INVALID FOR* TELANGIECTOSIS///CAPILLARY DIS NEC/NOS [I78.9] INVALID FOR* CHR SOLAR SKIN DAMAGE NOS [L57.8] INVALID FOR* Fibrocystic change of breast [N60.19] INVALID FOR* Abnormal mammogram [R92.8] INVALID FOR* More... Breast mass [N63.0] INVALID FOR* More... Disposition: Return in about 6 weeks (around 03/18/2018) for post-op. Follow-up and Disposition History Recorded Encounter Status:Closed by SUSAN FOSS PA-C on 02/11/18 breast lt unilateral complete on 2017-12-26 BREAST LT [facility]81 [facility] [address] [facility] ([id number]) Patient: BOZENA QUEVEDO Phone#: : 1970 Age: 47 Gender: F Pt. Type: Out Account: [id number] Location: Ordering: RAIN QUINONES Exam Date: 12/26/2017/7:41 Family Phys: BREA BROWN Charge Code: [id number] Physician: [facility] Order #: [id number] DLP Dose#: CORRECTION Right breast corrected to left breast. Corrected on: 12/26/2017; Dictated by: Anastacia Robledo MD on 12/26/2017 at 15:19 Approved by: Anastacia Robledo MD on 12/26/2017 at 15:19 PROCEDURE: ULTRASOUND BREAST LT COMPARISON: [facility], US, BREAST LT COMPLETE, 06/20/2017, 6:48. INDICATIONS: Follow up TECHNIQUE: Breast ultrasound was performed, with evaluation focusing on all four quadrants. FINDINGS: DIAGNOSTIC CATEGORY 4--SUSPICIOUS FINDINa-LOW SUSPICION FOR MALIGNANCY LEFT BREAST: Solid suspicious-appearing lesion, hypoechoic echotexture, mid-breast depth, 2 o'clock position, and 7x7 mm size, image obtained at 8:17:29. The previously visualized probably benign findings in the 2:00 and 11:00 position are not seen on the current exam and most likely represented hemorrhagic or proteinaceous cysts. LEFT BREAST: Simple benign-appearing cyst, anechoic echotexture, anterior depth, 2:00 position measuring 9 mm, 5 o'clock position, and 8x 5x7 mm size, at 6:00 position measuring 8 x 7 mm. Smaller cysts are seen throughout the breast. Cluster of small cysts are seen at the 10:00 position. The larger cyst seen at 3:00 position is no longer present on the current exam. Stable dilated ducts noted adjacent to the area lobe. RECOMMENDATIONS: Continued Report - Page 2 of 2 Patient: BOZENA QUEVEDO Phone#: : 1970 Age: 47 Gender: F Pt. Type: Out Account: [id number] Location: Ordering: RAIN QUINONES Exam Date: 12/26/2017/7:41 Family Phys: BREA SHEIKH Charge Code: [id number] Physician: [facility] Order #: [id number] [facility] Dose#: ULTRASOUND-GUIDED CORE BIOPSY: LEFT BREAST. PLEASE NOTE: A NORMAL MAMMOGRAM DOES NOT EXCLUDE THE POSSIBILITY OF BREAST CANCER. A CLINICALLY SUSPICIOUS PALPABLE LUMP SHOULD BE BIOPSIED. Dictated by: Daxa Jay MD on 12/26/2017 at 10:38 Approved by: Daxa Jay MD on 12/26/2017 at 13:26 office visit: f/u breast biopsy on 2017-07-17 Documentation of Done Invalid 07-17-2017 [facility] Surgical current medications Interpretation Code 07-17-2017 [facility] (procedure) ([id number]) Documentation of T Invalid 07-17-2017 [facility] Surgical current medications Interpretation Code 07-17-2017 [facility] (procedure) ([id number]) Fall risk No Invalid 07-17-2017 [facility] Yazmin gical assessment Interpretation Code 7 [facility] ([id number]) Tobacco smoking Never Invalid 07-17-2017 - [facility] Surgical status [facility] Interpretation Code 07-17-20 17 [facility] ([id number]) Tobacco use [facility] Former Invalid 07-17-2017 [facility] Surgical smoker Interpretation Code 07-17-2017 [facility] ([id number]) office visit: left breast biopsy on 2017-07-10 Fall risk assessment No [address] [place] [address] Surgical 07-10-2017 [facility] ([id number]) Protein mass conc T 07-10-2017 [facility] Surgical 07-10-2017 [facility] ([id number]) Protein mass conc Done 07-10-2017 [facility] 07-10-2017 [facility] ([id number]) Tobacco smoking status Never [facility] 07-10-2017 [facility] ([id number]) Tobacco smoking status Former smoker [facility] Surgical [facility] 07-10-2017 [facility] ([id number]) office visit on 06-02-08 Fall risk assessment No [address] [place] [address] Surgical 07-03-2017 [facility] ([id number]) Protein mass conc T 07-03-2017 [facility] Surgical 07-03-2017 [facility] ([id number]) Protein mass conc Done 07-03-2017 [facility] Surgical 07-03-2017 [facility] ([id number]) Tobacco smoking status Former smoker [facility] Surgical [facility] 07-03-2017 [facility] ([id number]) Tobacco smoking status Never [address] [place] [address] Surgical [facility] 07-03-2017 [facility] ([id number]) us breast lt unilateral complete on 2017-06-20 US BREAST LT [facility] 981 [facility] [address] Ph: [phone]) [phone] Patient: BOZENA QUEVEDO Phone#: : 1970 Age: 46 Gender: F Pt. Type: Out Account: [id number] Location: Ordering: RAIN QUINONES Exam Date: 06/20/2017/6:48 Family Phys: BREA SHEIKH Charge Code: [id number] Physician: [facility] Order #: [id number] DLP Dose#: PROCEDURE: ULTRASOUND BREAST LT COMPARISON: [facility], , BILAT SCREENING, 06/19/2017, 13:30. [facility], MR, BREAST BILAT W W/O CON, 04/05/2013, 13:55. [facility], US, BREAST LT, 03/27/2013, 16:00. INDICATIONS: Left Breast Density TECHNIQUE: Breast ultrasound was performed, with evaluation focusing on all four quadrants. FINDINGS: DIAGNOSTIC CATEGORY 3--PROBABLY BENIGN FINDING. THE FOLLOWING FINDING(S) HAS A HIGH PROBABILITY OF A BENIGN ETIOLOGY: LEFT BREAST: Solid benign-appearing circumscribed mass, hypoechoic echotexture in the 2:00 position posteriorly measuring 7 x 5 x 6 mm, this likely corresponds to the mammographic finding. There is a second solid benign-appearing circumscribed mass, hypoechoic echotexture, mid-breast depth, 11 o'clock position, and 7x5x4 mm size. LEFT BREAST: Simple benign-appearing cyst, anechoic echotexture, mid-breast depth, 3 o'clock position, and 92f76m7 mm size. There is an adjacent cyst measuring 15 x 10 x 4 mm. Subcentimeter cysts are seen at 11:00 and 12:00 position measuring 5 mm and 4 mm, respectively. LEFT BREAST: Complicated, likely benign cyst, hypoechoic echotexture, mid-breast depth, 6 o'clock position, and 4x3 mm size. LEFT BREAST: Typical-appearing lymph node at the 1 and 2 o'clock positions. RECOMMENDATIONS: SIX MONTH FOLLOW-UP ULTRASOUND: LEFT BREAST. Continued Report - Page 2 of 2 Patient: BOZENA QUEVEDO Phone#: : 1970 Age: 46 Gender: F Pt. Type: Out Account: [id number] Location: Ordering: RAIN QUINONES Exam Date: 06/20/2017/6:48 Family Phys: BREA SHEIKH Charge Code: [id number] Physician: [facility] Order #: [id number] DLP Dose#: PLEASE NOTE: A NORMAL MAMMOGRAM DOES NOT EXCLUDE THE POSSIBILITY OF BREAST CANCER. A CLINICALLY SUSPICIOUS PALPABLE LUMP SHOULD BE BIOPSIED. Dictated by: Daxa Jay MD on 06/20/2017 at 8:25 Approved by: Daxa Jay MD on 06/20/2017 at 14:53 office visit on 201 06-01-25 Breast Abnormal Left Invalid 06-19-2017 - [facility] Surgical Mammogram Interpretation Code 06-19-2017 [facility] screening ([id number]) MG Breast Abnormal Left 06-19-2017 - [facility] Surgical screening 06-19-2017 [facility] ([id number]) mamm digital lt spot views on 2017-06-19 MAMM DIGITAL LT [facility] 981 Normal [facility] SPOT VIEWS [facility] [address] ([id number]) Patient: BOZENA QUEVEDO Phone#: : 1970 Age: 46 Gender: F Pt. Type: Out Account: [id number] Location: Ordering: RAIN JEANCARLOSZEE Exam Date: 06/19/2017/13:49 Family Phys: BREA SHEIKH Charge Code: [id number] Physician: [facility] Order #: [id number] DLP Dose#: PROCEDURE: MAMM LT SPOT/MAG UNILAT DIGITAL WITH CAD COMPARISON: [facility], , BILAT SCREENING, 06/19/2017, 13:30. INDICATIONS: Diagnostic BREAST COMPOSITION: Extremely dense, which may lower the sensitivity of mammography (>75% glandular). FINDINGS: DIAGNOSTIC CATEGORY 0--INCOMPLETE ASSESSMENT: NEED ADDITIONAL IMAGING EVALUATION. LEFT BREAST: FOCAL ASYMMETRY (finding without convex borders usually visible on two orthogonal views), characterized by benign macrolobulated morphology, posterior depth, 2 o'clock position, and 6x6x9 mm size. RECOMMENDATIONS: ULTRASOUND: LEFT BREAST. We will call the patient back for an ultrasound and provide an additional report. PLEASE NOTE: A NORMAL MAMMOGRAM DOES NOT EXCLUDE THE POSSIBILITY OF BREAST CANCER. A CLINICALLY SUSPICIOUS PALPABLE LUMP SHOULD BE BIOPSIED. THIS FACILITY UTILIZES A REMINDER SYSTEM TO ENSURE THAT ALL PATIENTS RECEIVE REMINDER LETTERS FOR APPOINTMENTS. THIS INCLUDES REMINDERS FOR ROUTINE MAMMOGRAMS, DIAGNOSITC MAMMOGRAMS, OR OTHER BREAST IMAGING INTERVENTIONS WHEN APPROPRIATE. THIS PATIENT WILL BE PLACED IN THE APPROPRIATE REMINDER SYSTEM. Dictated by: Daxa Jay MD on 06/20/2017 at 8:16 Approved by: Daxa Jay MD on 06/20/2017 at 8:16 mamm digital bilat screen on 2017-06-19 [facility]81 Normal [facility]-19-2017 [facility] [place] [address] ([id number]) Patient: BOZENA QUEVEDO Phone#: : 1970 Age: 46 Gender: F Pt. Type: Out Account: [id number] Location: Ordering: RAIN QUINONES Exam Date: 06/19/2017/13:30 Family Phys: BREA SHEIKH Charge Code: [id number] Physician: [facility] Order #: [id number] DL Dose#: PROCEDURE: MAMM BILAT DIGITAL SCREENING WITH CAD COMPARISON: [facility], BILAT SCREENING, 05/16/2016, 8:17. INDICATIONS: Screening BREAST COMPOSITION: Extremely dense, which may lower the sensitivity of mammography (>75% glandular). FINDINGS: DIAGNOSTIC CATEGORY 0--INCOMPLETE ASSESSMENT: NEED ADDITIONAL IMAGING EVALUATION. RIGHT BREAST: No significant suspicious finding. No significant change has occurred. LEFT BREAST: FOCAL ASYMMETRY (finding without convex borders usually visible on two orthogonal views), characterized by obscured indeterminate morphology, posterior depth, 2 o'clock position, and 5x9x10 mm size. RECOMMENDATIONS: SAME DAY DIAGNOSTIC MAMMOGRAM: LEFT BREAST. A separate report will be provided. PLEASE NOTE: A NORMAL MAMMOGRAM DOES NOT EXCLUDE THE POSSIBILITY OF BREAST CANCER. A CLINICALLY SUSPICIOUS PALPABLE LUMP SHOULD BE BIOPSIED. THIS FACILITY UTILIZES A REMINDER SYSTEM TO ENSURE THAT ALL PATIENTS RECEIVE REMINDER LETTERS FOR APPOINTMENTS. THIS INCLUDES REMINDERS FOR ROUTINE MAMMOGRAMS, DIAGNOSITC MAMMOGRAMS, OR OTHER BREAST IMAGING INTERVENTIONS WHEN APPROPRIATE. THIS PATIENT WILL BE PLACED IN THE APPROPRIATE REMINDER SYSTEM. Dictated by: Daxa Jay MD on 06/20/2017 at 8:14 Continued Report - Page 2 of 2 Patient: BOZENA QUEVEDO Phone#: : 1970 Age: 46 Gender: F Pt. Type: Out Account: [id number] Location: Ordering: RAIN QUINONES Exam Date: 06/19/2017/13:30 Family Phys: BREA SHEIKH Charge Code: [id number] Physician: [facility] Order #: [id number] DLP Dose#: Approved by: Daxa Jay MD on 06/20/2017 at 8:14 Vital Signs Vital Sign Description Value / Unit Date Location The following section is limited to 5 en tries per type and includes entries from the following time range: [id number] - 8. BMI (Body Mass Index) 27.06 kg/m2 07-03-2017 - 07-03-2017 [facility] ([id number]) Body Temperature 98.2 [degF] 07-03-2017 - 07-03-2017 [facility] ([id number]) BP Diastolic 82 mm[Hg] 07-03-2017 - 07-03-2017 [facility] ([id number]) BP Systolic 121 mm[Hg] 07-03-2017 - 07-03-2017 [facility] ([id number]) Height 149.86 cm 07-03-2017 - 07-03-2017 [facility] ([id number]) Pulse (Heart Rate) 61 /min 07-03-2017 - 07-03-2017 [facility] ([id number]) Respiratory Rate 18 /min 07-03-2017 - 07-03-2017 [facility] ([id number]) Weight 60.78 kg 07-03-2017 - 07-03-2017 [facility] ([id number]) Encounters Date Type Reason Provider Location 12-26-2017 - Ambulatory RAIN Lowryerene 12-26-2017 RAIN QUINONES [facility] RAIN QUINONES ([id number]) BREA SHEIKH UNKNOWN PROVIDER UNKNOWN PROVIDER UNKNOWN PROVIDER 06-20-2017 - Ambulatory RAIN Lowryerene 06-20-2017 RAIN QUINONES [facility] RAIN QUINONES ([id number]) BREA SHEIKH UNKNOWN PROVIDER UNKNOWN PROVIDER UNKNOWN PROVIDER 06-19-2017 - Ambulatory RAIN Lowryerene 06-19-2017 RAIN QUINONES [facility] RAIN QUINONES ([id number]) BREA SHEIKH UNKNOWN PROVIDER UNKNOWN PROVIDER UNKNOWN PROVIDER 12-01-2018 - Emergency NOT RECORDED Facility:A 12-01-2018 department patient PHYSICIAN GENEISO visit ROSANNA MANTILLA [facility] 01-22-2019 - Patient encounter LOKI GARRIDO [facility] 01-23-2019 procedure LOKI [place] ( [id number]) 01-17-2019 - Patient encounter LOIK GARRIDO [facility] 01-17-2019 procedure Castro ([id number] 0) 12-11-2018 - Patient encounter LOKI GARRIDO [facility] 12-12-2018 procedure Castro (0000 0) 08-26-2018 - Patient encounter CONRAD Alva (VAULT MAKER) [facility] 2018 procedure OLEG [place] (0 0000) HEMA 07-12-2018 - Patient encounter JEFFRY A FANSONYA [facility] 07-12-2018 procedure Castro (0000 0) 03-11-2018 - Patient encounter JEFFRY A FANSONYA [facility] 03-11-2018 procedure JEFFRY JANE Castro ( [id number]) JEFFRY Miranda [facility] 02-07-2018 - Patient encounter JEFFRY A FANNING [facility] 02-07-2018 procedure EMILIANO Castro (0000 0) JONI 08-26-2018 Encounter for [facility] general adult [place] (000 00) medical examination without abnormal findings Plan of Treatment Plan Description Date Location Appointment Appointment 07-17-2017 - [facility] Surgical 07-17-2017 Associates ([id number]) Appointment Appointment 07-10-2017 - [facility] Surgical 07-10-2017 [facility] ([id number]) Biopsy, breast, with Biopsy, breast, with 07-10-2017 - [facility] [place] ultrasound guidance ultrasound guidance 07-11-2017 Associ[facility] es ([id number]) Aspiration of breast Aspiration of breast 07-10-2017 - [facility] [place] cyst cyst 07-11-2017 [facility] ([id number]) Payers Payer Name Policy Number [id number] [id number]) [facility] [id number] [facility] OUTPATIENT ([id number]) [facility] [id number] [facility] OUTPATIENT ([id number]) [id number] [facility] [place] ([id number]) The following information is from the original human readable contentNo Payer Records FoundNo Payer Records FoundNo Payer Records FoundNo Payer Records FoundNo Payer Records Found Summary Purpose Family History No Family History Records FoundNo Family History Records FoundNo Family History Records FoundNo Family History Records FoundNo Family History Records Found Advance Directives No Advanced Directives Records FoundNo Advanced Directives Records FoundNo Advanced Directives Records FoundNo Advanced Directives Records FoundNo Advanced Directives Records Found Additional Source Comments FOR RECORDS PERTAINING TO PATIENTS WHO ARE OR HAVE BEEN ENROLLED IN A CHEMICAL DEPENDENCY/SUBSTANCE ABUSE PROGRAM, SOME INFORMATION MAY BE OMITTED. This clinical summary was aggregated from multiple sources. Caution should be exercised in using it in the provision of clinical care. This summary normalizes information from multiple sources, and as a consequence, information in this document may materially changethe coding, format and clinical context of patient data. In addition, data may be omittedin some cases. CLINICAL DECISIONS SHOULD BE BASED ON THE PRIMARY CLINICAL RECORDS. [facility] provides no warranty or guarantee of the accuracy or completeness of information in this document. UNRECOGNIZED CONTENT PROVIDED BELOW FOR UNRECOGNIZED SECTION INFORMATION SOURCE DATE CREATED AUTHOR AUTHOR'S ORGANIZATIO N 05/20/2018 [facility] DATE CREATED AUTHOR AUTHOR'S ORGANIZATIO N 12/12/2018 [facility] [place] DATE CREATED AUTHOR AUTHOR'S ORGANIZATIO N 01/23/2019 [facility] DATE CREATED AUTHOR AUTHOR'S ORGANIZATIO N 05/09/2019 [facility] DATE CREATED AUTHOR AUTHOR'S ORGANIZATIO N 05/13/2019 [facility]
[2019-06-02 13:02] LABS: HPV Reflexed? NOT INDICATED
== END | disposition home or self-care (01) ==
PROVIDERS: Visit Provider Obstetrics & Gynecology
DX: Z12.4 Encounter for screening for malignant neoplasm of cervix (principal)
CPT/HCPCS: 87624; 88175; G0145